=== PATIENT | male | born 1950 | race Caucasian/White ===

== ENCOUNTER 2016-11-29 09:04 | Outpatient (CLI) | payer OTHER ==
[2016-11-29] MEDS ORDERED: ALBUTEROL NEB 2.5 MG/3 ML INH ONE (10:08)
== END 2016-11-29 09:05 | disposition home or self-care (01) ==
DX: I27.2 Other secondary pulmonary hypertension (principal)
CPT/HCPCS: 94060; 94729; J7613

== ENCOUNTER 2016-12-18 13:37 | Outpatient (CLI) | payer OTHER | END 2016-12-18 13:38 | disposition home or self-care (01) | DX: R06.00 Dyspnea, unspecified (principal); I49.1 Atrial premature depolarization ==

== ENCOUNTER 2018-06-22 11:19 | Outpatient (CLI) | payer MEDICARE, OTHER | END 2018-06-22 11:20 | disposition home or self-care (01) | LOC: DI 11:19 | PROVIDERS: ATTEND Internal Medicine | DX: R93.1 Abnormal findings on diagnostic imaging of heart and coronary circulation (principal); I34.0 Nonrheumatic mitral (valve) insufficiency | CPT/HCPCS: 93306 ==

== ENCOUNTER 2019-04-22 | Outpatient (CLI) | payer MEDICARE, OTHER | END 2019-04-22 10:16 | disposition home or self-care (01) ==

== ENCOUNTER 2019-05-24 07:42 | Day surgery (SDC) | payer MEDICARE, OTHER ==
[2019-05-24] MEDS ORDERED: LACTATED RINGERS 1,000 ML IV ONE (08:17)
[2019-05-24] MEDS ORDERED: fentaNYL 250 MCG/5 ML VIAL IVP ONE (09:05)
[2019-05-24] MEDS ORDERED: MIDAZOLAM 2 MG/2 ML VIAL IVP ONE (09:05)
[2019-05-24 10:14] VITALS: BP 112/80
== END 2019-05-24 07:43 | disposition home or self-care (01) ==
LOC: SDS 07:42
PROVIDERS: ATTEND Internal Medicine Gastroenterology
PROC: 0DBN8ZZ Excision of Sigmoid Colon, Via Natural or Artificial Opening Endoscopic (ICD-10-PCS; 2019-05-24)
PROC: 0DBN8ZX Excision of Sigmoid Colon, Via Natural or Artificial Opening Endoscopic, Diagnostic (ICD-10-PCS; 2019-05-24)
PROC: 3E0H8GC Introduction of Other Therapeutic Substance into Lower GI, Via Natural or Artificial Opening Endoscopic (ICD-10-PCS; 2019-05-24)
PROC: 0DBP8ZZ Excision of Rectum, Via Natural or Artificial Opening Endoscopic (ICD-10-PCS; principal; 2019-05-24 09:15)
DX: Z12.11 Encounter for screening for malignant neoplasm of colon (principal); D17.79 Benign lipomatous neoplasm of other sites; K62.1 Rectal polyp; D12.5 Benign neoplasm of sigmoid colon; K57.30 Diverticulosis of large intestine without perforation or abscess without bleeding; E11.9 Type 2 diabetes mellitus without complications; I10 Essential (primary) hypertension; E66.9 Obesity, unspecified
CPT/HCPCS: 45380; 45381; 45385; J3010; J7120

== ENCOUNTER 2021-03-30 11:04 | Inpatient (IN) | payer MEDICARE, OTHER ==
--- NOTE | 2021-03-30 11:27 | ED Physician Documentation ---
PD HPI GI BLEED - Stated complaint Stated Complaint: MALE - Chief complaint Chief Complaint: General - History obtained from History obtained from: Patient - History of Present Illness Timing - onset: Last night Timing - duration: Hours (12) Timing - details: Abrupt onset Associated symptoms: Black/tarry stool, Dizzy (lightheaded with standing), Loss of appetite. No: Abdominal pain, Near syncope / syncope Contributing factors: NSAID use (takes naproxen daily). No: Sick contact, Bad food, Recent antibiotics, Anticoagulated Similar symptoms before: Has not had sx before Recently seen: Not recently seen Review of Systems Constitutional: denies: Fever, Chills Nose: denies: Rhinorrhea / runny nose, Congestion Throat: denies: Sore throat Cardiac: denies: Chest pain / pressure, Palpitations Respiratory: denies: Cough GI: reports: Nausea, Bloody / black stool. denies: Abdominal Pain, Vomiting, Constipation, Diarrhea : denies: Dysuria, Frequency Neurologic: reports: Generalized weakness. denies: Focal weakness, Altered ment al status, Headache PD PAST MEDICAL HISTORY - Past Medical History Cardiovascular: Hypertension, High cholesterol, Other Endocrine/Autoimmune: Type 2 diabetes GI: Colon polyps : Kidney stones HEENT: None Psych: None Musculoskeletal: None, Other Derm: None - Past Surgical History General: Colonoscopy HEENT: Tonsil/Adenoidectomy - Present Medications Home Medications: Ambulatory Orders Medication Instructions Recorded Confirmed Amlodipine Besylate [Norvasc] 10 mg PO DAILY 03/30/21 03/30/21 Atorvastatin [Lipitor] 20 mg PO QPM 03/30/21 03/30/21 Losartan Potassium [Cozaar] 100 mg PO DAILY 03/30/21 03/30/21 Tadalafil [Cialis] 5 mg PO DAILY 03/30/21 03/30/21 metFORMIN [Glucophage] 500 mg PO BIDWM 03/30/21 03/30/21 - Allergies Allergies/Adverse Reactions: Allergies Allergy/AdvReac Type Severity Reaction Status Date / Time Penicillins Allergy Unknown Verified 03/30/21 11:20 Sulfa (Sulfonamide Allergy Unknown Verified 03/30/21 11:20 Antibiotics) PD ED PE NORMAL - Vitals Vital signs reviewed: Yes - General General: Alert and oriented X 3, Well developed/nourished - Neck Neck: Supple, no meningeal sign, No adenopathy - Cardiac Cardiac: RRR (mild tachycardia), No murmur - Respiratory Respiratory: Clear bilaterally - Abdomen Abdomen: Normal bowel sounds, Soft, Non tender, Non distended, No organomegaly - Male Male : Deferred - Rectal Rectal: Deferred - Back Back: No CVA TTP - Derm Derm: Warm and dry. No: Normal color (pale) - Extremities Extremities: No tenderness to palpate, Normal ROM s pain, No edema, No calf tenderness / cord - Neuro Neuro: Alert and oriented X 3, No motor deficit, Normal speech Results - Vitals Vitals: Vital Signs - 24 hr 03/30/21 03/30/21 11:13 11:37 Temperature 36.6 C Heart Rate 102 H 109 H Respiratory 18 17 Rate Blood Pressure 125/72 125/71 O2 Saturation 98 100 Oxygen O2 Source Room air - Labs Labs: Laboratory Tests 03/30/21 03/30/21 03/30/21 11:29 11:29 11:29 WBC 9.1 RBC 2.43 L Hgb 7.7 L Hct 23.5 L MCV 96.7 H MCH 31.7 H MCHC 32.8 RDW 13.3 Plt Count 177 MPV 10.8 Neut # (Auto) 7.2 H Lymph # (Auto) 1.3 L [place] # (Auto) 0.6 Eos # (Auto) 0.0 Baso # (Auto) 0.0 Absolute Nucleated RBC 0.00 Nucleated RBC % 0.0 Sodium 137 Potassium 4.8 Chloride 102 Carbon Dioxide 24 Anion Gap 11.0 BUN 59 H Creatinine 1.0 Estimated GFR (MDRD) 74 L Glucose 149 H Calcium 9.5 Total Bilirubin 0.8 AST 19 ALT 29 Alkaline Phosphatase 48 Total Protein 6.7 Albumin 4.4 Globulin 2.3 Albumin/Globulin Ratio 1.9 Lipase 47 Urine Color Urine Clarity Urine pH Ur Specific [place] Urine Protein Urine Glucose (UA) Urine Ketones Urine Occult Blood Urine Nitrite Urine Bilirubin Urine Urobilinogen Ur Leukocyte Esterase Ur Microscopic Review Urine Culture Comments Nasal Adenovirus (PCR) Nasal B. parapertussis DNA (PCR) Nasal Coronavir 229E PCR Nasal Coronavir HKU1 PCR Nasal Coronavir NL63 PCR Nasal Coronavir OC43 PCR Nasal Enterovir/Rhinovir PCR Nasal Influenza B PCR Nasal Influenza A PCR Nasal Parainfluen 1 PCR Nasal Parainfluen 2 PCR Nasal Parainfluen 3 PCR Nasal Parainfluen 4 PCR Nasal RSV (PCR) Nasal B.pertussis DNA PCR Nasal C.pneumoniae (PCR) [place] Human Metapneumo PCR Nasal M.pneumoniae (PCR) Nasal SARS-CoV-2 (PCR) Blood Type B POSITIVE Blood Type Recheck Antibody Screen NEGATIVE Crossmatch IS Only See Detail 03/30/21 03/30/21 03/30/21 11:52 11:52 12:07 WBC RBC Hgb Hct MCV MCH MCHC RDW Plt Count MPV Neut # (Auto) Lymph # (Auto) [place] # (Auto) Eos # (Auto) Baso # (Auto) Absolute Nucleated RBC Nucleated RBC % Sodium Potassium Chloride Carbon Dioxide Anion Gap BUN Creatinine Estimated GFR (MDRD) Glucose Calcium Total Bilirubin AST ALT Alkaline Phosphatase Total Protein Albumin Globulin Albumin/Globulin Ratio Lipase Urine Color YELLOW Urine Clarity CLEAR Urine pH 5.0 Ur Specific [place] 1.015 Urine Protein NEGATIVE Urine Glucose (UA) NEGATIVE Urine Ketones NEGATIVE Urine Occult Blood NEGATIVE Urine Nitrite NEGATIVE Urine Bilirubin NEGATIVE Urine Urobilinogen 0.2 (NORMAL) Ur Leukocyte Esterase NEGATIVE Ur Microscopic Review NOT INDICATED Urine Culture Comments NOT INDICATED Nasal Adenovirus (PCR) NOT DETECTED Nasal B. parapertussis DNA (PCR) NOT DETECTED Nasal Coronavir 229E PCR NOT DETECTED Nasal Coronavir HKU1 PCR NOT DETECTED Nasal Coronavir NL63 PCR NOT DETECTED Nasal Coronavir OC43 PCR NOT DETECTED Nasal Enterovir/Rhinovir PCR NOT DETECTED Nasal Influenza B PCR NOT DETECTED Nasal Influenza A PCR NOT DETECTED Nasal Parainfluen 1 PCR NOT DETECTED Nasal Parainfluen 2 PCR NOT DETECTED Nasal Parainfluen 3 PCR NOT DETECTED Nasal Parainfluen 4 PCR NOT DETECTED Nasal RSV (PCR) NOT DETECTED Nasal B.pertussis DNA PCR NOT DETECTED Nasal C.pneumoniae (PCR) NOT DETECTED [place] Human Metapneumo PCR NOT DETECTED Nasal M.pneumoniae (PCR) NOT DETECTED Nasal SARS-CoV-2 (PCR) NOT DETECTED Blood Type Blood Type Recheck B POSITIVE Antibody Screen Crossmatch IS Only PD MEDICAL DECISION MAKING - ED course Complexity details: reviewed results (CBC low blood count and presume falling with ongoing bleeding. It is at 7.7 but giving unit blood appropriate. ), considered differential (presume upper GI bleeding. No anticoagulants. No history of liver disease. ), d/w patient, d/w [employer] consultant (Dr. Newby and Dr. Adkins) Departure - Departure Disposition: ED Place in Observation Clinical Impression: Upper GI bleed Anemia Qualifiers: Anemia type: unspecified type Qualified Code(s): D64.9 - Anemia, unspecified Condition: Stable Discharge Date/Time: 03/30/21 13:49
[2021-03-30] MEDS ORDERED: ONDANSETRON 4 MG/2 ML VIAL IVP STA (11:40)
[2021-03-30] MEDS ORDERED: FAMOTIDINE 20 MG/2 ML VIAL IVP STA (11:41)
[2021-03-30] MEDS ORDERED: SODIUM CHLORIDE 0.9% 1,000 ML IV STA (11:42)
[2021-03-30] MEDS ORDERED: PANTOPRAZOLE 40 MG VIAL IVP STA (11:43)
[2021-03-30 11:59] LABS: BASOPHILS % (AUTO) 0.1 %; EOSINOPHILS % (AUTO) 0.1 %; HCT - HEMATOCRIT 23.5 % (42.0-52.0); HGB - HEMOGLOBIN 7.7 g/dL (14.0-18.0); LYMPHOCYTES # (AUTO) 1.3 10^3/uL (1.5-3.5); LYMPHOCYTES % (AUTO) 13.9 %; MEAN CORPUSCULAR HEMOGLOBIN 31.7 pg (27.0-31.0); MEAN CORPUSCULAR HGB CONC 32.8 g/dL (32.0-36.0); MEAN CORPUSCULAR VOLUME 96.7 fL (80.0-94.0); MEAN PLATELET VOLUME 10.8 fL (7.4-11.4); MONOCYTES # (AUTO) 0.6 10^3/uL (0.0-1.0); MONOCYTES % (AUTO) 6.3 %; NEUTROPHILS # (AUTO) 7.2 10^3/uL (1.5-6.6); NEUTROPHILS % (AUTO) 78.7 %; PLT - PLATELET COUNT 177 10^3/uL (130-450); RED BLOOD COUNT 2.43 10^6/uL (4.70-6.10); RED CELL DISTRIBUTION WIDTH 13.3 % (12.0-15.0); WHITE BLOOD COUNT 9.1 x10^3/uL (4.8-10.8)
[2021-03-30 12:13] LABS: ALBUMIN 4.4 g/dL (3.2-5.5); ALBUMIN/GLOBULIN RATIO 1.9 (1.0-2.2); BILIRUBIN,TOTAL 0.8 mg/dL (0.2-1.0); CALCIUM 9.5 mg/dL (8.5-10.3); POTASSIUM 4.8 mmol/L (3.5-5.0); TOTAL PROTEIN 6.7 g/dL (6.7-8.2)
[2021-03-30 12:27] LABS: BILIRUBIN,URINE NEGATIVE (NEGATIVE); GLUCOSE, URINE (UA) NEGATIVE (NEGATIVE); KETONES,URINE (UA) NEGATIVE (NEGATIVE); LEUKOCYTE ESTERASE, URINE NEGATIVE (NEGATIVE); NITRITE,URINE NEGATIVE (NEGATIVE); OCCULT BLOOD,URINE NEGATIVE (NEGATIVE); PROTEIN,URINE NEGATIVE (NEGATIVE); UROBILINOGEN,URINE 0.2 (NORMAL) E.U./dL (NORMAL)
[2021-03-30 12:28] LABS: CLARITY,URINE CLEAR (CLEAR)
[2021-03-30 12:59] LABS: B. PARAPERTUSSIS- RESP PCR PAN NOT DETECTED; B. PERTUSSIS- RESP PCR PANEL NOT DETECTED; C. PNEUMONIAE- RESP PCR PANEL NOT DETECTED; CORONAVIRUS 229E-RESP PCR NOT DETECTED; CORONAVIRUS HKU1-RESP PCR NOT DETECTED; CORONAVIRUS NL63-RESP PCR NOT DETECTED; CORONAVIRUS OC43-RESP PCR NOT DETECTED; HUMAN METAPNEUMOVIRUS NOT DETECTED; INFLUENZA A- RESP PCR PANEL NOT DETECTED; INFLUENZA B - RESP PCR PANEL NOT DETECTED; M. PNEUMONIAE- RESP PCR PANEL NOT DETECTED; PARAINFLUENZA VIRUS 1 NOT DETECTED; PARAINFLUENZA VIRUS 2 NOT DETECTED; PARAINFLUENZA VIRUS 3 NOT DETECTED; PARAINFLUENZA VIRUS 4 NOT DETECTED; RHINOVIRUS/ENTEROVIRUS NOT DETECTED; RSV- RESP PCR PANEL NOT DETECTED; SARS-CoV-2 -RESP PCR PANEL NOT DETECTED
[2021-03-30] MEDS ORDERED: oxyCODONE 5 MG TABLET PO PRN (13:03)
[2021-03-30] MEDS ORDERED: MORPHINE 2 MG/ML CARPUJECT IVP PRN (13:03)
[2021-03-30] MEDS ORDERED: ACETAMINOPHEN 325 MG TABLET PO PRN (13:03)
[2021-03-30] MEDS ORDERED: ONDANSETRON 4 MG/2 ML VIAL IVP PRN (13:03)
--- NOTE | 2021-03-30 13:09 | HISTORY & PHYSICAL EXAMINATION ---
Chief Complaint - Chief Complaint Chief Complaint: Bloody stool History of Present Illness - Admitted From Admitted From:: Home - History Obtained From Records Reviewed: Yes History obtained from: Patient, ER Physician, EMR - History of Present Illness HPI Comment/Other: This is a 70-year-old male with a past medical history significant for type 2 d iabetes mellitus, hypertension presents today complaining of dark tarry stools. He states began yesterday evening at about 9 PM. He had 1 bowel movement noted to stool was bloody and dark. He thought himself that he likely was bleeding from an upper GI source. He states he went to sleep but woke up in all night another bowel movement and once again it was dark and tarry. He then began to feel quite dizzy and lightheaded and was barely able to get himself back to bed. Given he still felt weak, dizzy and lightheaded this morning, he decided to come to the emergency department. He reports he has been on ibuprofen for most of his life for chronic leg pain. Over the past 4 months he has switched to naproxen twice daily. He reports no nausea or vomiting or hematemesis. He does drink 4-5 alcoholic beverages a day and has been doing so since the age of 14. He reports having a colonoscopy his most recent being about 3 years ago. He has been told that he has diverticulosis, polyps and a lipoma in his colon. He currently reports feeling much better after receiving IV fluids in the emergency department. He denies any chest pain, dyspnea, fever, chills. Reports no abdominal pain. He denies use of any blood thinners including aspirin. In the emergency department, he was noted to have a hemoglobin of 7.7. Baseline is approximately 12. He was ordered 1 unit of packed red blood cell. Given the above findings, medicine was consulted for admission. He did receive Protonix I V in the emergency department and general surgery was contacted by the emergency department physician. We did discuss goals of care and he would like to be a full code. History - Past Medical History Cardiovascular: reports: Hypertension, High cholesterol, Other Endocrine/Autoimmune: reports: Type 2 diabetes GI: reports: Colon polyps : reports: Kidney stones HEENT: reports: None Psych: reports: None Musculoskeletal: reports: None, Other Derm: reports: None MRSA Hx?: No - Past Surgical History General: reports: Colonoscopy HEENT: reports: Tonsil/Adenoidectomy - Family & Social History Family History: Father: CAD, CVA/TIA Family History Comment/Other: He denies a family history of inflammatory bowel disease or cancer. He said his father from a stroke after CABG for heart disease. Living arrangement: At home Living Situation: With spouse/s.o. Social History Notes: He smoked a pack a day since the age of 14 and quit about 5 years ago. He has been drinking 4-5 alcoholic beverages on a regular basis since his teens. He lives at home with his . Meds/Allgy - Home Medications Home Medications: Ambulatory Orders Medication Instructions Recorded Confirmed Amlodipine Besylate [Norvasc] 10 mg PO DAILY 03/30/21 Atorvastatin [Lipitor] 20 mg PO QPM 03/30/21 Losartan Potassium [Cozaar] 100 mg PO DAILY 03/30/21 Tadalafil [Cialis] 5 mg PO DAILY 03/30/21 metFORMIN [Glucophage] 500 mg PO BIDWM 03/30/21 - Allergies Allergies/Adverse Reactions: Allergies Allergy/AdvReac Type Severity Reaction Status Date / Time Penicillins Allergy Unknown Verified 03/30/21 11:20 Sulfa (Sulfonamide Allergy Unknown Verified 03/30/21 11:20 Antibiotics) Review of Systems - Constitutional Constitutional: denies: Fever, Chills - Ears, Nose & Throat Ears, Nose & Throat: denies: Nasal discharge, Nasal congestion, Sore throat - Cardiovascular Cariovascular: reports: Lightheadedness. denies: Chest pain, Edema, Exertional dyspnea, Decr. exercise tolerance - Respiratory Respiratory: denies: Cough, SOB at rest, SOB with exertion - Gastrointestinal Gastrointestinal: reports: Black stools, Bloody stools. denies: Abdominal pain, Nausea, Vomiting, Donald blood emesis, Coffee grounds emesis, Poor appetite - Genitourinary Genitourinary: denies: Dysuria, Frequency, Urgency, Hematuria - Integumentary Integumentary: denies: Rash - Neurological Neurological: reports: General weakness, Dizziness. denies: Focal weakness, Headache - Hematologic/Lymphatic Hematologic/Lymphatic: denies: Anemia, Bleeding tendencies - All Other Systems All Other Systems: reports: Reviewed and negative Prior Level of Functionality: He is independent with his ADLs. Exam - Vital Signs Reviewed Vital Signs: Yes Vital Signs: Vital Signs x48h Temp Pulse Resp BP Pulse Ox 03/30/21 11:37 109 H 17 125/71 100 03/30/21 11:13 36.6 C 102 H 18 125/72 98 - Physical Exam General Appearance: positive: No acute distress, Alert Eyes Bilateral: positive: Normal inspection, Other (Conjuctival pallor.) ENT: positive: ENT inspection nml Neck: positive: Nml inspection Respiratory: positive: No respiratory distress. negative: Wheezes, Rales Cardiovascular: positive: Regular rate & rhythm, No murmur. negative: Tachycardia Abdomen: positive: Non-tender, No distention. negative: Tenderness Skin: positive: Warm, Dry, Pallor Extremities: positive: No pedal edema Neurologic/Psychiatric: positive: Motor nml. negative: Disoriented to person, Disoriented to place, Disoriented to time Conclusion/Plan - Problem List (1) Upper GI bleed Conclusion/Plan: Suspect this is the cause of his acute blood loss anemia. Given the elevated BUN and his NSAID use suspect this is likely an upper GI bleed. I did speak with general surgery who would like to perform an endoscopy and colonoscopy tomorrow. We will start the patient on Protonix 40 mg IV twice daily. Clear liquid diet for today and n.p.o. at midnight. We will also give him bowel prep for colonoscopy. (2) Acute blood loss anemia Conclusion/Plan: This is secondary to the upper GI bleed. Hemoglobin today 7.7 his baseline is around 12. He has been ordered 1 unit of packed red blood cell in the emergency department and we will monitor his hemoglobin every 8 hours. We will continue to transfuse as needed. SCDs for DVT prophylaxis. (3) Type 2 diabetes mellitus Conclusion/Plan: Metformin and a statin at home. We will place him on sliding scale and once he is taking p.o. consistently we will place him on a carb controlled diet. - Lab Results Fish Bones: 03/30/21 14:43 03/30/21 11:29 Core Measures - Anticipated LOS I expect patient to be DC'd or transferred within 96 hours.: Yes - Issues Hospital Issues and Management Plan: 70-year-old male found to have acute both anemia and likely upper GI bleed. We will place in observation for endoscopy and transfusion of packed red blood cell. - DVT/VTE - Prophylaxis VTE/DVT Device ordered at admit?: Yes VTE/DVT Prophylaxis med ordered at admit?: No Not Ordered - Medical Reason: Contraindicated
[2021-03-30] MEDS: SODIUM CHLORIDE FLUSH 0.9% 10 ML SYRINGE IVP PRN (14:24)
[2021-03-30 14:54] LABS: HCT - HEMATOCRIT 21.7 % (42.0-52.0)
--- NOTE | 2021-03-30 16:16 | PHARMACY PROGRESS NOTE ---
- Best Possible Medication History Admit Date and Time: 03/30/21 1302 Processed by: Pharmacy Medication History completed: Yes Patient Interview: Completed Secondary Source(s): Pharmacy records, Insurance records As the person ultimately responsible for medication therapy, providers are able to order a medication from an existing home medication list in [facility] via the "Reconcile Routine" prior to Confirmation of that medication by security support analyst. Such practice is discouraged except when the physician, in their clinical judgment, deems that a medical need exists for a medication without regard to previous use.
[2021-03-30] MEDS: INSULIN ASPART 300 UNIT/3 ML PEN SUBQ SCH ×2 (17:15→21:08)
[2021-03-30] MEDS: SODIUM CHLORIDE FLUSH 0.9% 10 ML SYRINGE IVP SCH (17:15)
[2021-03-30] MEDS: SODIUM/POTASSIUM/MAG SULFATES 354 ML PREP KIT PO SCH (17:53)
[2021-03-30 18:37] LABS: INR 1.2 (0.8-1.2); PT - PROTHROMBIN TIME 13.2 secs (9.9-12.6)
[2021-03-30] MEDS: PANTOPRAZOLE 40 MG VIAL IVP SCH (20:56)
[2021-03-30 21:58] LABS: HCT - HEMATOCRIT 23.8 % (42.0-52.0); HGB - HEMOGLOBIN 7.8 g/dL (14.0-18.0)
[2021-03-31] MEDS: SODIUM CHLORIDE FLUSH 0.9% 10 ML SYRINGE IVP SCH ×3 (00:58→16:54)
[2021-03-31] MEDS: SODIUM/POTASSIUM/MAG SULFATES 354 ML PREP KIT PO SCH (05:21)
[2021-03-31] MEDS: INSULIN REGULAR HUMAN 300 UNIT/3 ML VIAL SUBQ SCH ×2 (06:20→11:57)
[2021-03-31 08:08] LABS: BASOPHILS % (AUTO) 0.2 %; EOSINOPHILS # (AUTO) 0.2 10^3/uL (0.0-0.7); EOSINOPHILS % (AUTO) 2.8 %; HCT - HEMATOCRIT 24.2 % (42.0-52.0); HGB - HEMOGLOBIN 7.8 g/dL (14.0-18.0); LYMPHOCYTES # (AUTO) 1.5 10^3/uL (1.5-3.5); MEAN CORPUSCULAR HEMOGLOBIN 29.8 pg (27.0-31.0); MEAN CORPUSCULAR HGB CONC 32.2 g/dL (32.0-36.0); MEAN CORPUSCULAR VOLUME 92.4 fL (80.0-94.0); MEAN PLATELET VOLUME 10.6 fL (7.4-11.4); MONOCYTES # (AUTO) 0.5 10^3/uL (0.0-1.0); MONOCYTES % (AUTO) 8.4 %; NEUTROPHILS # (AUTO) 3.6 10^3/uL (1.5-6.6); NEUTROPHILS % (AUTO) 62.2 %; PLT - PLATELET COUNT 151 10^3/uL (130-450); RED BLOOD COUNT 2.62 10^6/uL (4.70-6.10); RED CELL DISTRIBUTION WIDTH 15.1 % (12.0-15.0); WHITE BLOOD COUNT 5.7 x10^3/uL (4.8-10.8)
[2021-03-31 08:33] LABS: CALCIUM 9.1 mg/dL (8.5-10.3); CREATININE 1.1 mg/dL (0.6-1.2); PHOSPHORUS 3.8 mg/dL (2.5-4.6); POTASSIUM 4.3 mmol/L (3.5-5.0)
[2021-03-31] MEDS: PANTOPRAZOLE 40 MG VIAL IVP SCH ×2 (09:23→22:32)
--- NOTE | 2021-03-31 12:39 | PROVIDER PROGRESS NOTE ---
Subjective - Prog Note Date Prog Note Date: 03/31/21 - Subjective Subjective: He reports doing well today. Has not noticed much more bleeding. Most of his bowel movements since starting the prep have been liquid and now predominantly clear. Denies any abdominal pain. Current Medications - Current Medications Current Medications: Active Medications Acetaminophen (Acetaminophen 325 Mg Tablet) 650 mg PO Q4HR PRN PRN Reason: Pain 1 to 4 Insulin Human Regular (Insulin Regular Human 300 Unit/3 Ml Vial) 1 - 5 unit SUBQ Q6HR [facility]; Protocol Last Admin: 03/31/21 11:57 Dose: Not Given Documented by: Morphine Sulfate (Morphine 2 Mg/Ml Carpuject) 2 mg IVP Q2HR PRN PRN Reason: Pain 8 to 10 Ondansetron HCl (Ondansetron 4 Mg/2 Ml Vial) 4 mg IVP Q6HR PRN PRN Reason: Nausea / Vomiting Oxycodone HCl (Oxycodone 5 Mg Tablet) 5 mg PO Q4HR PRN PRN Reason: Pain 5 to 7 Pantoprazole Sodium (Pantoprazole 40 Mg Vial) 40 mg IVP BID [facility] Last Admin: 03/31/21 09:23 Dose: 40 mg Documented by: Sodium Chloride (Sodium Chloride Flush 0.9% 10 Ml Syringe) 10 ml IVP PRN PRN PRN Reason: NEEDED PER PROVIDER ORDERS Last Admin: 03/30/21 14:24 Dose: 10 ml Documented by: Sodium Chloride (Sodium Chloride Flush 0.9% 10 Ml Syringe) 10 ml IVP 0100,0900,1700 [facility] Last Admin: 03/31/21 09:23 Dose: 10 ml Documented by: Amlodipine Besylate [Norvasc] 10 mg PO DAILY 03/30/21 Atorvastatin [Lipitor] 20 mg PO QPM 03/30/21 Losartan Potassium [Cozaar] 100 mg PO DAILY 03/30/21 Tadalafil [Cialis] 5 mg PO DAILY 03/30/21 metFORMIN [Glucophage] 500 mg PO BIDWM 03/30/21 Objective - Vital Signs/Intake & Output Reviewed Vital Signs: Yes Vital Signs: Vital Signs x48h Temp Pulse Resp BP Pulse Ox 03/31/21 12:09 37.0 C 74 18 134/68 H 100 03/31/21 08:45 36.8 C 77 18 127/70 100 03/31/21 06:16 127/68 03/31/21 05:00 36.8 C 80 16 94/57 L 98 Intake & Output: Intake & Output 03/28/21 03/29/21 03/30/21 03/31/21 23:59 23:59 23:59 23:59 Intake Total 3970 1000 Balance 3970 1000 - Objective General Appearance: positive: No acute distress, Alert Eyes Bilateral: positive: Normal inspection ENT: positive: ENT inspection nml Neck: positive: Nml inspection Respiratory: positive: No respiratory distress. negative: Wheezes, Rales Cardiovascular: positive: Regular rate & rhythm, No murmur Abdomen: positive: Non-tender, No distention. negative: Tenderness Skin: positive: Warm, Dry Extremities: positive: No pedal edema Neurologic/Psychiatric: positive: Oriented x3 - Lab Results Fish Bones: 03/31/21 07:18 03/31/21 07:18 Other Labs: Lab Results x24hrs 03/31/21 03/31/21 03/31/21 Range/Units 11:13 07:18 07:18 WBC 5.7 (4.8-10.8) x10^3/uL RBC 2.62 L (4.70-6.10) 10^6/uL Hgb 7.8 L (14.0-18.0) g/dL Hct 24.2 L (42.0-52.0) % MCV 92.4 (80.0-94.0) fL MCH 29.8 (27.0-31.0) pg MCHC 32.2 (32.0-36.0) g/dL RDW 15.1 H (12.0-15.0) % Plt Count 151 (130-450) 10^3/uL MPV 10.6 (7.4-11.4) fL Neut # (Auto) 3.6 (1.5-6.6) 10^3/uL Lymph # (Auto) 1.5 (1.5-3.5) 10^3/uL [place] # (Auto) 0.5 (0.0-1.0) 10^3/uL Eos # (Auto) 0.2 (0.0-0.7) 10^3/uL Baso # (Auto) 0.0 (0.0-0.1) 10^3/uL Absolute Nucleated RBC 0.00 x10^3/uL Nucleated RBC % 0.0 /100WBC PT (9.9-12.6) secs INR (0.8-1.2) Sodium 137 (135-145) mmol/L Potassium 4.3 (3.5-5.0) mmol/L Chloride 101 (101-111) mmol/L Carbon Dioxide 26 (21-32) mmol/L Anion Gap 10.0 (6-13) BUN 37 H (6-20) mg/dL Creatinine 1.1 (0.6-1.2) mg/dL Estimated GFR (MDRD) 67 L (>89) Glucose 122 H (70-100) mg/dL POC Whole Bld Glucose 109 H (70 - 100) mg/dL Calcium 9.1 (8.5-10.3) mg/dL Phosphorus 3.8 (2.5-4.6) mg/dL Magnesium 2.0 (1.7-2.8) mg/dL Nasal Adenovirus (PCR) Nasal B. parapertussis DNA (PCR) Nasal Coronavir 229E PCR Nasal Coronavir HKU1 PCR Nasal Coronavir NL63 PCR Nasal Coronavir OC43 PCR Nasal Enterovir/Rhinovir PCR Nasal Influenza B PCR Nasal Influenza A PCR Nasal Parainfluen 1 PCR Nasal Parainfluen 2 PCR Nasal Parainfluen 3 PCR Nasal Parainfluen 4 PCR Nasal RSV (PCR) Nasal B.pertussis DNA PCR Nasal C.pneumoniae (PCR) [place] Human Metapneumo PCR Nasal M.pneumoniae (PCR) Nasal SARS-CoV-2 (PCR) Blood Type Blood Type Recheck Antibody Screen Crossmatch IS Only 03/31/21 03/30/21 03/30/21 Range/Units 06:20 21:55 20:57 WBC (4.8-10.8) x10^3/uL RBC (4.70-6.10) 10^6/uL Hgb 7.8 L (14.0-18.0) g/dL Hct 23.8 L (42.0-52.0) % MCV (80.0-94.0) fL MCH (27.0-31.0) pg MCHC (32.0-36.0) g/dL RDW (12.0-15.0) % Plt Count (130-450) 10^3/uL MPV (7.4-11.4) fL Neut # (Auto) (1.5-6.6) 10^3/uL Lymph # (Auto) (1.5-3.5) 10^3/uL [place] # (Auto) (0.0-1.0) 10^3/uL Eos # (Auto) (0.0-0.7) 10^3/uL Baso # (Auto) (0.0-0.1) 10^3/uL Absolute Nucleated RBC x10^3/uL Nucleated RBC % /100WBC PT (9.9-12.6) secs INR (0.8-1.2) Sodium (135-145) mmol/L Potassium (3.5-5.0) mmol/L Chloride (101-111) mmol/L Carbon Dioxide (21-32) mmol/L Anion Gap (6-13) BUN (6-20) mg/dL Creatinine (0.6-1.2) mg/dL Estimated GFR (MDRD) (>89) Glucose (70-100) mg/dL POC Whole Bld Glucose 108 H 100 (70 - 100) mg/dL Calcium (8.5-10.3) mg/dL Phosphorus (2.5-4.6) mg/dL Magnesium (1.7-2.8) mg/dL Nasal Adenovirus (PCR) Nasal B. parapertussis DNA (PCR) Nasal Coronavir 229E PCR Nasal Coronavir HKU1 PCR Nasal Coronavir NL63 PCR Nasal Coronavir OC43 PCR Nasal Enterovir/Rhinovir PCR Nasal Influenza B PCR Nasal Influenza A PCR Nasal Parainfluen 1 PCR Nasal Parainfluen 2 PCR Nasal Parainfluen 3 PCR Nasal Parainfluen 4 PCR Nasal RSV (PCR) Nasal B.pertussis DNA PCR Nasal C.pneumoniae (PCR) [place] Human Metapneumo PCR Nasal M.pneumoniae (PCR) Nasal SARS-CoV-2 (PCR) Blood Type Blood Type Recheck Antibody Screen Crossmatch IS Only 03/30/21 03/30/21 03/30/21 Range/Units 18:29 16:55 14:43 WBC (4.8-10.8) x10^3/uL RBC (4.70-6.10) 10^6/uL Hgb 7.0 L* (14.0-18.0) g/dL Hct 21.7 L (42.0-52.0) % MCV (80.0-94.0) fL MCH (27.0-31.0) pg MCHC (32.0-36.0) g/dL RDW (12.0-15.0) % Plt Count (130-450) 10^3/uL MPV (7.4-11.4) fL Neut # (Auto) (1.5-6.6) 10^3/uL Lymph # (Auto) (1.5-3.5) 10^3/uL [place] # (Auto) (0.0-1.0) 10^3/uL Eos # (Auto) (0.0-0.7) 10^3/uL Baso # (Auto) (0.0-0.1) 10^3/uL Absolute Nucleated RBC x10^3/uL Nucleated RBC % /100WBC PT 13.2 H (9.9-12.6) secs INR 1.2 (0.8-1.2) Sodium (135-145) mmol/L Potassium (3.5-5.0) mmol/L Chloride (101-111) mmol/L Carbon Dioxide (21-32) mmol/L Anion Gap (6-13) BUN (6-20) mg/dL Creatinine (0.6-1.2) mg/dL Estimated GFR (MDRD) (>89) Glucose (70-100) mg/dL POC Whole Bld Glucose 128 H (70 - 100) mg/dL Calcium (8.5-10.3) mg/dL Phosphorus (2.5-4.6) mg/dL Magnesium (1.7-2.8) mg/dL Nasal Adenovirus (PCR) Nasal B. parapertussis DNA (PCR) Nasal Coronavir 229E PCR Nasal Coronavir HKU1 PCR Nasal Coronavir NL63 PCR Nasal Coronavir OC43 PCR Nasal Enterovir/Rhinovir PCR Nasal Influenza B PCR Nasal Influenza A PCR Nasal Parainfluen 1 PCR Nasal Parainfluen 2 PCR Nasal Parainfluen 3 PCR Nasal Parainfluen 4 PCR Nasal RSV (PCR) Nasal B.pertussis DNA PCR Nasal C.pneumoniae (PCR) [place] Human Metapneumo PCR Nasal M.pneumoniae (PCR) Nasal SARS-CoV-2 (PCR) Blood Type Blood Type Recheck Antibody Screen Crossmatch IS Only 03/30/21 03/30/21 03/30/21 Range/Units 12:07 11:52 11:29 WBC (4.8-10.8) x10^3/uL RBC (4.70-6.10) 10^6/uL Hgb (14.0-18.0) g/dL Hct (42.0-52.0) % MCV (80.0-94.0) fL MCH (27.0-31.0) pg MCHC (32.0-36.0) g/dL RDW (12.0-15.0) % Plt Count (130-450) 10^3/uL MPV (7.4-11.4) fL Neut # (Auto) (1.5-6.6) 10^3/uL Lymph # (Auto) (1.5-3.5) 10^3/uL [place] # (Auto) (0.0-1.0) 10^3/uL Eos # (Auto) (0.0-0.7) 10^3/uL Baso # (Auto) (0.0-0.1) 10^3/uL Absolute Nucleated RBC x10^3/uL Nucleated RBC % /100WBC PT (9.9-12.6) secs INR (0.8-1.2) Sodium (135-145) mmol/L Potassium (3.5-5.0) mmol/L Chloride (101-111) mmol/L Carbon Dioxide (21-32) mmol/L Anion Gap (6-13) BUN (6-20) mg/dL Creatinine (0.6-1.2) mg/dL Estimated GFR (MDRD) (>89) Glucose (70-100) mg/dL POC Whole Bld Glucose (70 - 100) mg/dL Calcium (8.5-10.3) mg/dL Phosphorus (2.5-4.6) mg/dL Magnesium (1.7-2.8) mg/dL Nasal Adenovirus (PCR) NOT DETECTED Nasal B. parapertussis DNA (PCR) NOT DETECTED Nasal Coronavir 229E PCR NOT DETECTED Nasal Coronavir HKU1 PCR NOT DETECTED Nasal Coronavir NL63 PCR NOT DETECTED Nasal Coronavir OC43 PCR NOT DETECTED Nasal Enterovir/Rhinovir PCR NOT DETECTED Nasal Influenza B PCR NOT DETECTED Nasal Influenza A PCR NOT DETECTED Nasal Parainfluen 1 PCR NOT DETECTED Nasal Parainfluen 2 PCR NOT DETECTED Nasal Parainfluen 3 PCR NOT DETECTED Nasal Parainfluen 4 PCR NOT DETECTED Nasal RSV (PCR) NOT DETECTED Nasal B.pertussis DNA PCR NOT DETECTED Nasal C.pneumoniae (PCR) NOT DETECTED [place] Human Metapneumo PCR NOT DETECTED Nasal M.pneumoniae (PCR) NOT DETECTED Nasal SARS-CoV-2 (PCR) NOT DETECTED Blood Type B POSITIVE Blood Type Recheck B POSITIVE Antibody Screen NEGATIVE Crossmatch IS Only See Detail Assessment/Plan - Problem List (1) Upper GI bleed Impression: This is the suspected cause of his acute blood loss anemia and likely related to his NSAID use. He does report alcohol use on regular basis but low suspicion for varices at this time. The plan will be for endoscopy and colonoscopy today. We will continue him on Protonix milligrams IV twice daily. We have discussed the importance of limiting his alcohol use and NSAID use. Depending on the EGD and colonoscopy findings as well as if his hemoglobin is stable, we will plan for discharge either later this afternoon or tomorrow. Continue n.p.o. status for the time being until the scopes and then will place him on a diet. (2) Acute blood loss anemia Impression: This is secondary to the likely upper GI bleed. He received 1 unit of packed r ed blood cell and his hemoglobin is stable this morning compared to yesterday evening. We will recheck another hemoglobin after the EGD and colonoscopy. Depending on the results of his scopes and if hemoglobin is stable, will consider discharge this afternoon or tomorrow morning. Continue to check hemoglobin every 8 hours. (3) Type 2 diabetes mellitus Impression: Stable. Once he is n.p.o. we will start him on carb controlled diet and sliding scale.
[2021-03-31 15:02] LABS: HGB - HEMOGLOBIN 7.6 g/dL (14.0-18.0)
[2021-03-31] MEDS: INSULIN ASPART 300 UNIT/3 ML PEN SUBQ SCH ×2 (16:54→21:27)
[2021-03-31] MEDS ORDERED: MAGNESIUM CITRATE 296 ML BOTTLE PO PRN (21:58)
[2021-03-31] MEDS ORDERED: MAGNESIUM CITRATE 296 ML BOTTLE PO STA (22:00)
[2021-03-31] MEDS: SODIUM CHLORIDE FLUSH 0.9% 10 ML SYRINGE IVP PRN (22:32)
[2021-04-01] MEDS: INSULIN REGULAR HUMAN 300 UNIT/3 ML VIAL SUBQ SCH ×3 (01:00→11:44)
[2021-04-01] MEDS: SODIUM CHLORIDE FLUSH 0.9% 10 ML SYRINGE IVP SCH ×4 (01:30→23:57)
[2021-04-01] MEDS ORDERED: PETROLATUM WHITE 5 GM PACKET TOP PRN (05:46)
[2021-04-01] MEDS ORDERED: MIN OIL/DIMETHICON/COCONUT OIL 92 GM TUBE TOP PRN (05:46)
[2021-04-01 05:59] LABS: BASOPHILS % (AUTO) 0.2 %; EOSINOPHILS # (AUTO) 0.2 10^3/uL (0.0-0.7); EOSINOPHILS % (AUTO) 3.6 %; HCT - HEMATOCRIT 20.2 % (42.0-52.0); LYMPHOCYTES # (AUTO) 1.2 10^3/uL (1.5-3.5); LYMPHOCYTES % (AUTO) 24.1 %; MEAN CORPUSCULAR HEMOGLOBIN 30.3 pg (27.0-31.0); MEAN CORPUSCULAR HGB CONC 33.2 g/dL (32.0-36.0); MEAN CORPUSCULAR VOLUME 91.4 fL (80.0-94.0); MEAN PLATELET VOLUME 10.6 fL (7.4-11.4); MONOCYTES # (AUTO) 0.5 10^3/uL (0.0-1.0); MONOCYTES % (AUTO) 9.7 %; NEUTROPHILS # (AUTO) 3.1 10^3/uL (1.5-6.6); PLT - PLATELET COUNT 132 10^3/uL (130-450); RED BLOOD COUNT 2.21 10^6/uL (4.70-6.10); RED CELL DISTRIBUTION WIDTH 14.6 % (12.0-15.0); WHITE BLOOD COUNT 5.1 x10^3/uL (4.8-10.8)
[2021-04-01 06:01] LABS: HGB - HEMOGLOBIN 6.7 g/dL (14.0-18.0)
[2021-04-01 06:08] LABS: CALCIUM 8.4 mg/dL (8.5-10.3); CREATININE 0.9 mg/dL (0.6-1.2); POTASSIUM 3.6 mmol/L (3.5-5.0)
[2021-04-01] MEDS ORDERED: LIDOCAINE-MPF 2% 5 ML VIAL ONE ×2 (07:05→09:27)
[2021-04-01] MEDS ORDERED: PROPOFOL 1000 MG/100 ML 1,000 MG/100 ML BOTTLE IV ONE (07:05)
--- NOTE | 2021-04-01 07:28 | ANESTHESIA ---
Pre-Anesthesia VS, & Labs - Diagnosis GI bleed - Procedure EGD, Colonoscopy Vital Signs: Temp Pulse Resp BP Pulse Ox 36.5 C 75 17 119/58 L 100 04/01/21 05:42 04/01/21 05:42 04/01/21 05:42 04/01/21 05:42 04/01/21 05:42 Height: 5 ft 9 in Weight (kg): 89.811 kg Body Mass Index: 29.2 BMI Classification: Overweight - NPO >8 hours - Lab Results Current Lab Results: Laboratory Tests 04/01/21 05:57: POC Whole Bld Glucose 126 H 04/01/21 05:23: Sodium 137, Potassium 3.6, Chloride 104, Carbon Dioxide 27, Anion Gap 6.0, BUN 22 H, Creatinine 0.9, Estimated GFR (MDRD) 84 L, Glucose 126 H, Calcium 8.4 L, Phosphorus 4.0, Magnesium 3.0 H 04/01/21 05:23: WBC 5.1, RBC 2.21 L, Hgb 6.7 L*, Hct 20.2 L, MCV 91.4, MCH 30.3, MCHC 33.2, RDW 14.6, Plt Count 132, MPV 10.6, Neut # (Auto) 3.1, Lymph # (Auto) 1.2 L, [place] # (Auto) 0.5, Eos # (Auto) 0.2, Baso # (Auto) 0.0, Absolute Nucleated RBC 0.00, Nucleated RBC % 0.0 04/01/21 00:04: POC Whole Bld Glucose 114 H 03/31/21 20:30: POC Whole Bld Glucose 108 H 03/31/21 16:46: POC Whole Bld Glucose 249 H 03/31/21 14:34: Hgb 7.6 L, Hct 23.0 L 03/31/21 11:13: POC Whole Bld Glucose 109 H 03/31/21 07:18: Sodium 137, Potassium 4.3, Chloride 101, Carbon Dioxide 26, Anion Gap 10.0, BUN 37 H, Creatinine 1.1, Estimated GFR (MDRD) 67 L, Glucose 122 H, Calcium 9.1, Phosphorus 3.8, Magnesium 2.0 03/31/21 07:18: WBC 5.7, RBC 2.62 L, Hgb 7.8 L, Hct 24.2 L, MCV 92.4, MCH 29.8, MCHC 32.2, RDW 15.1 H, Plt Count 151, MPV 10.6, Neut # (Auto) 3.6, Lymph # (Auto) 1.5, [place] # (Auto) 0.5, Eos # (Auto) 0.2, Baso # (Auto) 0.0, Absolute Nucleated RBC 0.00, Nucleated RBC % 0.0 03/31/21 06:20: POC Whole Bld Glucose 108 H 03/30/21 21:55: Hgb 7.8 L, Hct 23.8 L 03/30/21 20:57: POC Whole Bld Glucose 100 03/30/21 18:29: PT 13.2 H, INR 1.2 03/30/21 16:55: POC Whole Bld Glucose 128 H 03/30/21 14:43: Hgb 7.0 L*, Hct 21.7 L 03/30/21 12:07: Blood Type Recheck B POSITIVE 03/30/21 11:29: Sodium 137, Potassium 4.8, Chloride 102, Carbon Dioxide 24, Anion Gap 11.0, BUN 59 H, Creatinine 1.0, Estimated GFR (MDRD) 74 L, Glucose 149 H, Calcium 9.5, Total Bilirubin 0.8, AST 19, ALT 29, Alkaline Phosphatase 48, Total Protein 6.7, Albumin 4.4, Globulin 2.3, Albumin/Globulin Ratio 1.9, Lipase 47 03/30/21 11:29: WBC 9.1, RBC 2.43 L, Hgb 7.7 L, Hct 23.5 L, MCV 96.7 H, MCH 31.7 H, MCHC 32.8, RDW 13.3, Plt Count 177, MPV 10.8, Neut # (Auto) 7.2 H, Lymph # (Auto) 1.3 L, [place] # (Auto) 0.6, Eos # (Auto) 0.0, Baso # (Auto) 0.0, Absolute Nucleated RBC 0.00, Nucleated RBC % 0.0 03/30/21 11:29: Blood Type B POSITIVE, Antibody Screen NEGATIVE, Crossmatch IS Only See Detail Fish Bones: 04/01/21 05:23 04/01/21 05:23 Home Medications and Allergies Home Medications: Ambulatory Orders Amlodipine Besylate [Norvasc] 10 mg PO DAILY 03/30/21 Atorvastatin [Lipitor] 20 mg PO QPM 03/30/21 Losartan Potassium [Cozaar] 100 mg PO DAILY 03/30/21 Tadalafil [Cialis] 5 mg PO DAILY 03/30/21 metFORMIN [Glucophage] 500 mg PO BIDWM 03/30/21 Active Medications Acetaminophen (Acetaminophen 325 Mg Tablet) 650 mg PO Q4HR PRN PRN Reason: Pain 1 to 4 Insulin Human Regular (Insulin Regular Human 300 Unit/3 Ml Vial) 1 - 5 unit SUBQ Q6HR [facility]; Protocol Last Admin: 04/01/21 05:59 Dose: Not Given Documented by: Mineral Oil (Min Oil/Dimethicon/Coconut Oil 92 Gm Tube) 1 applic TOP PRN PRN PRN Reason: Skin Care Last Admin: 04/01/21 06:26 Dose: 1 applic Documented by: Morphine Sulfate (Morphine 2 Mg/Ml Carpuject) 2 mg IVP Q2HR PRN PRN Reason: Pain 8 to 10 Ondansetron HCl (Ondansetron 4 Mg/2 Ml Vial) 4 mg IVP Q6HR PRN PRN Reason: Nausea / Vomiting Oxycodone HCl (Oxycodone 5 Mg Tablet) 5 mg PO Q4HR PRN PRN Reason: Pain 5 to 7 Pantoprazole Sodium (Pantoprazole 40 Mg Vial) 40 mg IVP BID [facility] Last Admin: 03/31/21 22:32 Dose: 40 mg Documented by: Petrolatum (Petrolatum White 5 Gm Packet) 1 applic TOP PRN PRN PRN Reason: Dry Lips Sodium Chloride (Sodium Chloride Flush 0.9% 10 Ml Syringe) 10 ml IVP PRN PRN PRN Reason: NEEDED PER PROVIDER ORDERS Last Admin: 03/31/21 22:32 Dose: 10 ml Documented by: Sodium Chloride (Sodium Chloride Flush 0.9% 10 Ml Syringe) 10 ml IVP 0100,0900,1700 [facility] Last Admin: 04/01/21 01:30 Dose: 10 ml Documented by: Amlodipine Besylate [Norvasc] 10 mg PO DAILY 03/30/21 Atorvastatin [Lipitor] 20 mg PO QPM 03/30/21 Losartan Potassium [Cozaar] 100 mg PO DAILY 03/30/21 Tadalafil [Cialis] 5 mg PO DAILY 03/30/21 metFORMIN [Glucophage] 500 mg PO BIDWM 03/30/21 Allergies/Adverse Reactions: Allergies Allergy/AdvReac Type Severity Reaction Status Date / Time Penicillins Allergy Unknown Verified 03/30/21 11:20 Sulfa (Sulfonamide Allergy Unknown Verified 03/30/21 11:20 Antibiotics) Anes History & Medical History - Anesthetic History Anesthesia Complications: reports: No previous complications Family history of Anesthesia Complications: Denies Family history of Malignant Hyperthermia: Denies - Medical History Cardiovascular: reports: Hypertension, High cholesterol, Other Pulmonary: reports: Sleep apnea (per past anesthesia provider, never had sleep study) Gastrointestinal: reports: Colon polyps Urinary: reports: Kidney stones Musculoskeletal: reports: None, Other Endocrine/Autoimmune: reports: Type 2 diabetes Skin: reports: None Smoking Status: Former smoker - Surgical History General: reports: Colonoscopy Eyes Ears Nose Throat (EENT): reports: Tonsil/Adenoidectomy Exam General: Alert, Oriented x3, Cooperative, No acute distress Dental: WNL Mouth Openin Fingerbreadth Neck Mobility: Normal Mallampati classification: II Respiratory: Lungs clear, Normal breath sounds, No respiratory distress, No accessory muscle use Cardiovascular: Regular rate, Normal S1, Normal S2, No murmurs Plan Anesthesia Type: General, Total IV Consent for Procedure(s) Verified and Reviewed: Yes Code Status: Attempt Resuscitation ASA classification: 2-Mild systemic disease Is this case an emergency?: No
--- NOTE | 2021-04-01 08:16 | CONSULTATION NOTE ---
Referring Provider Name of Referring Provider:: Dr. Guru Dobbins Consult Date: 03/31/21 Chief Complaint - Chief Complaint Chief Complaint: Hematochezia and symptomatic anemia History of Present Illness - Admitted From Admitted From:: Home - History Obtained From Records Reviewed: EMR History obtained from: Patient Exam Limitations: NONE - History of Present Illness HPI Comment/Other: 70-year-old male presenting for symptomatic anemia and hematochezia. Patient with history of regular colonoscopies. Presents with melena and associated lethargy. Daily nonsteroidal use with no proton pump inhibition. Progressive worsening symptoms. No significant family history. Notable past surgical history to include none. Patient denies change in bowel function, positive bleeding per rectum, and also occasional reflux associated symptoms. Patient does not use tobacco. Patient has a history of alcohol use but denies any associated abuse. Worsening exercise tolerance. No history of heart attack or stroke. Patient takes no systemic anticoagulation. Endoscopic history includes approximately 3 years prior. History - Past Medical History Cardiovascular: reports: Hypertension, High cholesterol, Other Respiratory: reports: Sleep apnea (per past anesthesia provider, never had sleep study) Endocrine/Autoimmune: reports: Type 2 diabetes GI: reports: Colon polyps : reports: Kidney stones HEENT: reports: None Psych: reports: None Musculoskeletal: reports: None, Other Derm: reports: None MRSA Hx?: No - Past Surgical History General: reports: Colonoscopy HEENT: reports: Tonsil/Adenoidectomy - Family & Social History Family History: Father: CAD, CVA/TIA Family History Comment/Other: He denies a family history of inflammatory bowel disease or cancer. He said his father from a stroke after CABG for heart disease. Living arrangement: At home Living Situation: With spouse/s.o. Social History Notes: He smoked a pack a day since the age of 14 and quit about 5 years ago. He has been drinking 4-5 alcoholic beverages on a regular basis since his teens. He lives at home with his . Meds/Allgy - Home Medications Home Medications: Ambulatory Orders Medication Instructions Recorded Confirmed Amlodipine Besylate [Norvasc] 10 mg PO DAILY 03/30/21 03/30/21 Atorvastatin [Lipitor] 20 mg PO QPM 03/30/21 03/30/21 Losartan Potassium [Cozaar] 100 mg PO DAILY 03/30/21 03/30/21 Tadalafil [Cialis] 5 mg PO DAILY 03/30/21 03/30/21 metFORMIN [Glucophage] 500 mg PO BIDWM 03/30/21 03/30/21 - Allergies Allergies/Adverse Reactions: Allergies Allergy/AdvReac Type Severity Reaction Status Date / Time Penicillins Allergy Unknown Verified 03/30/21 11:20 Sulfa (Sulfonamide Allergy Unknown Verified 03/30/21 11:20 Antibiotics) Review of Systems - Constitutional Constitutional: reports: Fatigue - Gastrointestinal Gastrointestinal: reports: Black stools, Bloody stools Exam - Vital Signs Vital Signs: Vital Signs x48h Temp Pulse Pulse Pulse Resp BP BP 04/01/21 08:07 37.1 C 72 17 117/57 L 04/01/21 08:02 37.0 C 73 73 18 116/62 04/01/21 05:42 36.5 C 75 17 119/58 L Pulse Ox 04/01/21 08:07 04/01/21 08:02 100 04/01/21 05:42 100 - Physical Exam Comments/Other: General Appearance: positive: No acute distress Eyes Bilateral: positive: Normal inspection ENT: positive: ENT inspection nml Neck: positive: Nml inspection Respiratory: positive: Chest non-tender, No respiratory distress, Breath sounds nml. negative: Wheezes, Rales, Rhonchi Cardiovascular: positive: Regular rate & rhythm Abdomen: positive: No distention, Other. negative: Guarding, Rebound Extremities: positive: Non-tender, Full ROM, Nml appearance Neurologic/Psychiatric: positive: Oriented x3, CN's nml (2-12) Conclusion/Plan - Diagnosis Diagnosis: 1. Symptomatic anemia. 2. Gastrointestinal bleed. 3. History of polyps, colonic - Plan Plan: 1. Care per hospitalist service 2. Trend H&H and transfuse appropriately 3. Telemetry and close hemodynamic monitoring 4. Plan upper endoscopy to evaluate source, which is most likely given the patient's presenting uremia. Will proceed with colonoscopy as well. 5. Aggressive resuscitation 6. As is always the case, diagnostic endoscopy with potential for therapeutic interventions. Given limitations, surgical interventions and/or transfer for advanced gastrointestinal interventions and/or interventional radiographic interventions remain part of this complex algorithm. 7. Bowel rest and bowel prep in anticipation of colonoscopy 8. PPI infusion and consider Carafate pending results - Lab Results Fish Bones: 04/01/21 05:23 04/01/21 05:23
[2021-04-01] MEDS ORDERED: GLYCOPYRROLATE 1 MG/5 ML VIAL ONE (08:47)
[2021-04-01] MEDS: PANTOPRAZOLE 40 MG VIAL IVP SCH (09:24)
--- NOTE | 2021-04-01 09:53 | PROVIDER PROGRESS NOTE ---
Progress Note 70-year-old male presenting with symptomatic anemia, melena and hematochezia. Ongoing nonsteroidal use absent proton pump inhibition. Progressively worsening symptoms. Actively being transfused. Plan for colonoscopy yesterday however deferred secondary to scheduling a emergency case having "bumped". Colonoscopy with the following findings: 1. Poor prep 2. Ileocecal valve achieved as evidenced by the appendiceal orifice both photographed. 3. Terminal ileum intubated with no enteritis. 4. Cecum without cecitis. The entirety of the colon was out colitis. 5. Careful slow withdrawal showing pancolonic diverticulosis no diverticulitis. 6. Large mass with mucosal changes at historic tattoo site within the sigmoid colon. 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 Incomplete. Multiple specimen sent for pathology. 7. Rectum without proctitis. Pancolonic diverticulosis. No diverticulitis. No colonic source of gastrointestinal hemorrhage. 8. Internal hemorrhoids nonbleeding. Performed esophagogastroduodenoscopy with the following findings 1. Second portion of Duodenum normal. No evidence of of duodenitis. Cold forcep biopsy obtained. Hemostatic. 2. First portion of duodenum noted for multiple punctate ulcerations without active bleeding. Surrounding erythema. Multiply biopsied cold forceps. 3. Antrum without any antritis. Biopsies obtained cold forceps. Hemostatic. Patent pylorus. 4. Retroflexion with no significant hiatal herniation. 5. No diffuse gastritis or gastropathy. No polyps. No ulcerations. 6. GE junction with mild inflammatory changes and irregular Z-line. Biopsied. 7. Mid esophageal biopsies. Plan going forward would be as follows: 1. Continue to transfuse as necessary. 2. Carafate 1 g 4 times daily 3. PPI twice daily omeprazole 40 mg 4. GERD friendly diet 5. Evaluate for 24 hours with low residue diet to determine if the patient is stable and may discharge at that point.
--- NOTE | 2021-04-01 10:58 | ANESTHESIA POST OP EVALUATION ---
Anesthesia Post Eval - Post Anesthesia Eval Vitals: Last Vital Signs Temp 36.5 C 04/01/21 10:47 Pulse 69 04/01/21 10:47 Resp 18 04/01/21 10:47 BP 117/60 04/01/21 10:47 Pulse Ox 98 04/01/21 10:11 CV Function Including HR & BP: Stable Pain Control: Satisfactory Nausea & Vomiting: Negative Mental Status: Baseline Respiratory Status: Airway Patent Hydration Status: Satisfactory Anesthesia Complications: None
--- NOTE | 2021-04-01 12:48 | PROVIDER PROGRESS NOTE ---
Subjective - Prog Note Date Prog Note Date: 04/01/21 - Subjective Subjective: He reports feeling well today. He believes he did have some dark bowel movements yesterday evening. Reports no abdominal pain, nausea, vomiting. He went for the endoscopy and colonoscopy this morning. Current Medications - Current Medications Current Medications: Active Medications Acetaminophen (Acetaminophen 325 Mg Tablet) 650 mg PO Q4HR PRN PRN Reason: Pain 1 to 4 Insulin Human Regular (Insulin Regular Human 300 Unit/3 Ml Vial) 1 - 5 unit SUBQ Q6HR [facility]; Protocol Last Admin: 04/01/21 11:44 Dose: Not Given Documented by: Mineral Oil (Min Oil/Dimethicon/Coconut Oil 92 Gm Tube) 1 applic TOP PRN PRN PRN Reason: Skin Care Last Admin: 04/01/21 06:26 Dose: 1 applic Documented by: Morphine Sulfate (Morphine 2 Mg/Ml Carpuject) 2 mg IVP Q2HR PRN PRN Reason: Pain 8 to 10 Ondansetron HCl (Ondansetron 4 Mg/2 Ml Vial) 4 mg IVP Q6HR PRN PRN Reason: Nausea / Vomiting Oxycodone HCl (Oxycodone 5 Mg Tablet) 5 mg PO Q4HR PRN PRN Reason: Pain 5 to 7 Pantoprazole Sodium (Pantoprazole 40 Mg Vial) 40 mg IVP BID [facility] Last Admin: 04/01/21 09:24 Dose: Not Given Documented by: Petrolatum (Petrolatum White 5 Gm Packet) 1 applic TOP PRN PRN PRN Reason: Dry Lips Sodium Chloride (Sodium Chloride Flush 0.9% 10 Ml Syringe) 10 ml IVP PRN PRN PRN Reason: NEEDED PER PROVIDER ORDERS Last Admin: 03/31/21 22:32 Dose: 10 ml Documented by: Sodium Chloride (Sodium Chloride Flush 0.9% 10 Ml Syringe) 10 ml IVP 0100,0900,1700 [facility] Last Admin: 04/01/21 09:24 Dose: Not Given Documented by: Amlodipine Besylate [Norvasc] 10 mg PO DAILY 03/30/21 Atorvastatin [Lipitor] 20 mg PO QPM 03/30/21 Losartan Potassium [Cozaar] 100 mg PO DAILY 03/30/21 Tadalafil [Cialis] 5 mg PO DAILY 03/30/21 metFORMIN [Glucophage] 500 mg PO BIDWM 03/30/21 Objective - Vital Signs/Intake & Output Reviewed Vital Signs: Yes Vital Signs: Vital Signs x48h Temp Pulse Pulse Pulse Resp BP BP 04/01/21 11:41 36.4 C L 67 67 18 126/70 04/01/21 10:47 36.5 C 69 18 117/60 04/01/21 10:41 36.8 C 61 66 18 123/73 04/01/21 10:11 36.5 C 65 65 18 119/63 04/01/21 10:10 36.5 C 65 65 18 119/63 04/01/21 09:55 36.4 C L 82 16 103/79 04/01/21 09:44 36.2 C L 81 16 102/62 04/01/21 08:07 37.1 C 72 17 117/57 L 04/01/21 08:02 37.0 C 73 73 18 04/01/21 05:42 36.5 C 75 17 BP Pulse Ox 04/01/21 11:41 98 04/01/21 10:47 04/01/21 10:41 98 04/01/21 10:11 98 04/01/21 10:10 98 04/01/21 09:55 100 04/01/21 09:44 99 04/01/21 08:07 04/01/21 08:02 116/62 100 04/01/21 05:42 119/58 L 100 Intake & Output: Intake & Output 03/29/21 03/30/21 03/31/21 04/01/21 23:59 23:59 23:59 23:59 Intake Total 3970 3290 320 Balance 3970 3290 320 - Objective General Appearance: positive: No acute distress, Alert Eyes Bilateral: positive: Normal inspection, Conjunctivae nml ENT: positive: ENT inspection nml Neck: positive: Nml inspection Respiratory: positive: No respiratory distress. negative: Wheezes, Rales Cardiovascular: positive: Regular rate & rhythm, No murmur. negative: Tachycar samuel Abdomen: positive: Non-tender, No distention. negative: Tenderness Skin: positive: Warm, Dry. negative: Pallor - Lab Results Fish Bones: 04/01/21 05:23 04/01/21 05:23 Other Labs: Lab Results x24hrs 04/01/21 04/01/21 04/01/21 Range/Units 05:57 05:23 05:23 WBC 5.1 (4.8-10.8) x10^3/uL RBC 2.21 L (4.70-6.10) 10^6/uL Hgb 6.7 L* (14.0-18.0) g/dL Hct 20.2 L (42.0-52.0) % MCV 91.4 (80.0-94.0) fL MCH 30.3 (27.0-31.0) pg MCHC 33.2 (32.0-36.0) g/dL RDW 14.6 (12.0-15.0) % Plt Count 132 (130-450) 10^3/uL MPV 10.6 (7.4-11.4) fL Neut # (Auto) 3.1 (1.5-6.6) 10^3/uL Lymph # (Auto) 1.2 L (1.5-3.5) 10^3/uL [place] # (Auto) 0.5 (0.0-1.0) 10^3/uL Eos # (Auto) 0.2 (0.0-0.7) 10^3/uL Baso # (Auto) 0.0 (0.0-0.1) 10^3/uL Absolute Nucleated RBC 0.00 x10^3/uL Nucleated RBC % 0.0 /100WBC Sodium 137 (135-145) mmol/L Potassium 3.6 (3.5-5.0) mmol/L Chloride 104 (101-111) mmol/L Carbon Dioxide 27 (21-32) mmol/L Anion Gap 6.0 (6-13) BUN 22 H (6-20) mg/dL Creatinine 0.9 (0.6-1.2) mg/dL Estimated GFR (MDRD) 84 L (>89) Glucose 126 H (70-100) mg/dL POC Whole Bld Glucose 126 H (70 - 100) mg/dL Calcium 8.4 L (8.5-10.3) mg/dL Phosphorus 4.0 (2.5-4.6) mg/dL Magnesium 3.0 H (1.7-2.8) mg/dL Blood Type Antibody Screen Crossmatch IS Only 04/01/21 03/31/21 03/31/21 Range/Units 00:04 20:30 16:46 WBC (4.8-10.8) x10^3/uL RBC (4.70-6.10) 10^6/uL Hgb (14.0-18.0) g/dL Hct (42.0-52.0) % MCV (80.0-94.0) fL MCH (27.0-31.0) pg MCHC (32.0-36.0) g/dL RDW (12.0-15.0) % Plt Count (130-450) 10^3/uL MPV (7.4-11.4) fL Neut # (Auto) (1.5-6.6) 10^3/uL Lymph # (Auto) (1.5-3.5) 10^3/uL [place] # (Auto) (0.0-1.0) 10^3/uL Eos # (Auto) (0.0-0.7) 10^3/uL Baso # (Auto) (0.0-0.1) 10^3/uL Absolute Nucleated RBC x10^3/uL Nucleated RBC % /100WBC Sodium (135-145) mmol/L Potassium (3.5-5.0) mmol/L Chloride (101-111) mmol/L Carbon Dioxide (21-32) mmol/L Anion Gap (6-13) BUN (6-20) mg/dL Creatinine (0.6-1.2) mg/dL Estimated GFR (MDRD) (>89) Glucose (70-100) mg/dL POC Whole Bld Glucose 114 H 108 H 249 H (70 - 100) mg/dL Calcium (8.5-10.3) mg/dL Phosphorus (2.5-4.6) mg/dL Magnesium (1.7-2.8) mg/dL Blood Type Antibody Screen Crossmatch IS Only 03/31/21 03/30/21 Range/Units 14:34 11:29 WBC (4.8-10.8) x10^3/uL RBC (4.70-6.10) 10^6/uL Hgb 7.6 L (14.0-18.0) g/dL Hct 23.0 L (42.0-52.0) % MCV (80.0-94.0) fL MCH (27.0-31.0) pg MCHC (32.0-36.0) g/dL RDW (12.0-15.0) % Plt Count (130-450) 10^3/uL MPV (7.4-11.4) fL Neut # (Auto) (1.5-6.6) 10^3/uL Lymph # (Auto) (1.5-3.5) 10^3/uL [place] # (Auto) (0.0-1.0) 10^3/uL Eos # (Auto) (0.0-0.7) 10^3/uL Baso # (Auto) (0.0-0.1) 10^3/uL Absolute Nucleated RBC x10^3/uL Nucleated RBC % /100WBC Sodium (135-145) mmol/L Potassium (3.5-5.0) mmol/L Chloride (101-111) mmol/L Carbon Dioxide (21-32) mmol/L Anion Gap (6-13) BUN (6-20) mg/dL Creatinine (0.6-1.2) mg/dL Estimated GFR (MDRD) (>89) Glucose (70-100) mg/dL POC Whole Bld Glucose (70 - 100) mg/dL Calcium (8.5-10.3) mg/dL Phosphorus (2.5-4.6) mg/dL Magnesium (1.7-2.8) mg/dL Blood Type B POSITIVE Antibody Screen NEGATIVE Crossmatch IS Only See Detail ABX Reporting Has patient been on IV antibiotics over the past 48 hours?: No Assessment/Plan - Problem List (1) Upper GI bleed Impression: He went for an endoscopy and colonoscopy's morning. This revealed multiple small duodenal ulcerations with surrounding erythema but no evidence of active bleeding. This is likely the source of his upper GI bleed. We will switch his IV Protonix to p.o. and continue twice daily. We will start him on Carafate. General surgery is recommended advancing his diet tonight and if his hemoglobin remained stable without evidence of bleeding then he can be discharged tomorrow. We discussed the importance of avoiding NSAIDs given the duodenal ulcerations. (2) Acute blood loss anemia Impression: His hemoglobin did decrease this morning to less than 7 and he was given 1 more unit of packed red blood cell. His endoscopy did not reveal any obvious bleeding. We will recheck hemoglobin again this evening and tomorrow morning and if it is stable then he can be discharged. (3) Type 2 diabetes mellitus Impression: Stable. Continue carb controlled diet.
[2021-04-01] MEDS: INSULIN ASPART 300 UNIT/3 ML PEN SUBQ SCH ×2 (16:29→22:18)
[2021-04-01] MEDS: SUCRALFATE 1 GM/10 ML UDC PO SCH ×2 (16:33→22:17)
[2021-04-01 17:04] LABS: HCT - HEMATOCRIT 26.7 % (42.0-52.0); HGB - HEMOGLOBIN 8.7 g/dL (14.0-18.0)
[2021-04-01] MEDS: PANTOPRAZOLE 40 MG TABLET PO SCH (22:18)
[2021-04-01] MEDS: SODIUM CHLORIDE FLUSH 0.9% 10 ML SYRINGE IVP PRN (23:59)
[2021-04-02] MEDS: SUCRALFATE 1 GM/10 ML UDC PO SCH ×4 (05:52→21:41)
[2021-04-02 06:27] LABS: BASOPHILS % (AUTO) 0.1 %; EOSINOPHILS # (AUTO) 0.2 10^3/uL (0.0-0.7); EOSINOPHILS % (AUTO) 2.5 %; HCT - HEMATOCRIT 26.1 % (42.0-52.0); HGB - HEMOGLOBIN 8.4 g/dL (14.0-18.0); LYMPHOCYTES # (AUTO) 1.8 10^3/uL (1.5-3.5); MEAN CORPUSCULAR HEMOGLOBIN 30.3 pg (27.0-31.0); MEAN CORPUSCULAR HGB CONC 32.2 g/dL (32.0-36.0); MEAN CORPUSCULAR VOLUME 94.2 fL (80.0-94.0); MEAN PLATELET VOLUME 10.6 fL (7.4-11.4); MONOCYTES # (AUTO) 0.6 10^3/uL (0.0-1.0); MONOCYTES % (AUTO) 7.9 %; NEUTROPHILS # (AUTO) 4.9 10^3/uL (1.5-6.6); NEUTROPHILS % (AUTO) 65.2 %; PLT - PLATELET COUNT 170 10^3/uL (130-450); RED BLOOD COUNT 2.77 10^6/uL (4.70-6.10); RED CELL DISTRIBUTION WIDTH 14.4 % (12.0-15.0); WHITE BLOOD COUNT 7.6 x10^3/uL (4.8-10.8)
[2021-04-02 06:37] LABS: CALCIUM 8.5 mg/dL (8.5-10.3); MAGNESIUM 2.1 mg/dL (1.7-2.8); PHOSPHORUS 3.8 mg/dL (2.5-4.6); POTASSIUM 3.7 mmol/L (3.5-5.0)
[2021-04-02] MEDS: INSULIN ASPART 300 UNIT/3 ML PEN SUBQ SCH ×4 (08:48→21:41)
[2021-04-02] MEDS: SODIUM CHLORIDE FLUSH 0.9% 10 ML SYRINGE IVP SCH ×3 (08:48→16:33)
[2021-04-02] MEDS: PANTOPRAZOLE 40 MG TABLET PO SCH ×2 (08:55→21:40)
[2021-04-02 12:08] LABS: HCT - HEMATOCRIT 24.4 % (42.0-52.0)
[2021-04-02 14:11] LABS: ABSOLUTE RETICS # AUTO 0.073 10^6/uL (0.020-0.110); RED BLOOD COUNT 2.55 10^6/uL (4.70-6.10); RETICULOCYTE COUNT % (AUTO) 2.88 % (0.5-2.3)
[2021-04-02 14:52] LABS: FERRITIN 73.7 ng/mL (23.9-336.2)
[2021-04-02 14:54] LABS: % IRON SATURATION 8 % (20-50); IRON 28 ug/dL (45-182); TOTAL IRON BINDING CAPACITY 353 ug/dL (250-450); TRANSFERRIN 252 mg/dL (180-329)
[2021-04-02 17:03] LABS: HGB - HEMOGLOBIN 7.9 g/dL (14.0-18.0)
--- NOTE | 2021-04-02 17:35 | PROVIDER PROGRESS NOTE ---
Assessment/Plan - Problem List (1) Upper GI bleed Assessment/Plan: 04/02 Patient's hemoglobin slightly decreased, Patient report he had dark and brown-colored mixed the stool on today. It is improved but still need to monitor now. We will watch patient overnight, will have an H&H monitor tonight. Continue Protonix, Carafate. Discussed with the patient hold aspirin, ibuprofen of NSAIDs, advised the patient quit alcohol, Follow-up with GI surgeon. (2) Acute blood loss anemia Patient has acute blood loss from his GI bleed, likely from his duodenal ulcers. Patient had both EGD and colonoscopy done in hospital. Iron study also showed patient had a mild Iron deficiency. order iron pill, Continue H&H monitor, continue Protonix and Carafate. (3) Type 2 diabetes mellitus Impression: Stable. Continue carb controlled diet, Continue sliding scale, check A1c (4)alcohol abuse Patient reported he drank alcohol regularly, He denies alcohol withdrawal. We will order and vitamin B-1 for pain. Strongly advised patient quit alcohol because patient had GI bleed now - Current Meds Current Meds: Current Medications Generic Name Dose Route Start Last Admin Trade Name Freq PRN Reason Stop Dose Admin Insulin Aspart 1 - 5 unit 04/01/21 17:00 04/02/21 11:45 Insulin Aspart 300 Unit/3 Ml Pen SUBQ Not Given 0800,1200,1700,2100 [facility] Protocol Mineral Oil 1 applic 04/01/21 05:46 04/01/21 06:26 Min Oil/Dimethicon/Coconut Oil 92 Gm Tube TOP 1 applic PRN PRN Administration Skin Care Pantoprazole Sodium 40 mg 04/01/21 21:00 04/02/21 08:55 Pantoprazole 40 Mg Tablet PO 40 mg BID [facility] Administration Sodium Chloride 10 ml 03/30/21 13:03 04/01/21 23:59 Sodium Chloride Flush 0.9% 10 Ml Syringe IVP 10 ml PRN PRN Administration NEEDED PER PROVIDER ORDERS Sodium Chloride 10 ml 03/30/21 17:00 04/02/21 16:33 Sodium Chloride Flush 0.9% 10 Ml Syringe IVP 10 ml 0100,0900,1700 [facility] Administration Sucralfate 1 gm 04/01/21 16:00 04/02/21 16:22 Sucralfate 1 Gm/10 Ml Udc PO 1 gm 0700,1100,1600,2200 [facility] Administration - Lab Result Fish Bone Diagrams: 04/02/21 16:59 04/02/21 06:08 - Additional Planning My Orders: My Active Orders 04/02/21 Social Work Consult [CONS] Routine 04/02/21 12:03 HEMOGLOBIN A1c% [CHEM] Urgent 04/02/21 21:00 Atorvastatin [Lipitor] 20 mg PO QPM 04/03/21 09:00 Losartan [Cozaar] 100 mg PO DAILY amLODIPine [Norvasc] 10 mg PO DAILY Subjective - Subjective Patient Reports: Feeling Better Objective Vital Signs: Vital Signs - 24 hr 04/01/21 04/02/21 04/02/21 19:50 00:59 05:50 Temperature 37.1 C 36.9 C 36.8 C Heart Rate [ 71 78 72 Brachial] Respiratory 18 18 17 Rate Blood Pressure 136/73 H [Left Brachial artery] Blood Pressure 112/59 L 129/76 [Right Brachial artery] O2 Saturation 100 100 99 04/02/21 04/02/21 04/02/21 07:32 12:30 16:10 Temperature 37 C 36.9 C 36.7 C Heart Rate [ 72 75 67 Brachial] Respiratory 16 18 16 Rate Blood Pressure [Left Brachial artery] Blood Pressure 121/70 143/77 H 146/79 H [Right Brachial artery] O2 Saturation 100 100 100 Oxygen O2 Source Room air I&O (Last 24 Hrs): Intake and Output Totals x24h 03/31/21 04/01/21 04/02/21 23:59 23:59 23:59 Intake Total 3290 1490 820 Balance 3290 1490 820 General: Alert, Oriented x3, Cooperative, No acute distress HEENT: Atraumatic, PERRLA Neck: Supple Lymphatic: no adenopathy Neuro: Alert, Non Focal, Oriented Times 3 Cardiovascular: Regular rate, Normal S1, Normal S2 Respiratory: Chest non-tender, No respiratory distress Abdomen: Normal bowel sounds, Soft Extremities: Normal pulses - Results Results: Laboratory Results WBC 7.6 x10^3/uL (4.8-10.8) 04/02/21 06:08 RBC 2.55 10^6/uL (4.70-6.10) L 04/02/21 14:08 Hgb 7.9 g/dL (14.0-18.0) L 04/02/21 16:59 Hct 24.0 % (42.0-52.0) L 04/02/21 16:59 MCV 94.2 fL (80.0-94.0) H 04/02/21 06:08 MCH 30.3 pg (27.0-31.0) 04/02/21 06:08 MCHC 32.2 g/dL (32.0-36.0) 04/02/21 06:08 RDW 14.4 % (12.0-15.0) 04/02/21 06:08 Plt Count 170 10^3/uL (130-450) 04/02/21 06:08 MPV 10.6 fL (7.4-11.4) 04/02/21 06:08 Reticulocyte % (Auto) 2.88 % (0.5-2.3) H 04/02/21 14:08 Neut # (Auto) 4.9 10^3/uL (1.5-6.6) 04/02/21 06:08 Lymph # (Auto) 1.8 10^3/uL (1.5-3.5) 04/02/21 06:08 [place] # (Auto) 0.6 10^3/uL (0.0-1.0) 04/02/21 06:08 Eos # (Auto) 0.2 10^3/uL (0.0-0.7) 04/02/21 06:08 Baso # (Auto) 0.0 10^3/uL (0.0-0.1) 04/02/21 06:08 Absolute Nucleated RBC 0.00 x10^3/uL 04/02/21 06:08 Nucleated RBC % 0.0 /100WBC 04/02/21 06:08 Absolute Retic 0.073 10^6/uL (0.020-0.110) 04/02/21 14:08 PT 13.2 secs (9.9-12.6) H 03/30/21 18:29 INR 1.2 (0.8-1.2) 03/30/21 18:29 Sodium 136 mmol/L (135-145) 04/02/21 06:08 Potassium 3.7 mmol/L (3.5-5.0) 04/02/21 06:08 Chloride 102 mmol/L (101-111) 04/02/21 06:08 Carbon Dioxide 27 mmol/L (21-32) 04/02/21 06:08 Anion Gap 7.0 (6-13) 04/02/21 06:08 BUN 16 mg/dL (6-20) 04/02/21 06:08 Creatinine 1.0 mg/dL (0.6-1.2) 04/02/21 06:08 Estimated GFR (MDRD) 74 (>89) L 04/02/21 06:08 Glucose 144 mg/dL (70-100) H 04/02/21 06:08 POC Whole Bld Glucose 112 mg/dL (70 - 100) H 04/02/21 16:38 Calcium 8.5 mg/dL (8.5-10.3) 04/02/21 06:08 Phosphorus 3.8 mg/dL (2.5-4.6) 04/02/21 06:08 Magnesium 2.1 mg/dL (1.7-2.8) 04/02/21 06:08 Iron 28 ug/dL (45-182) L 04/02/21 14:08 TIBC 353 ug/dL (250-450) 04/02/21 14:08 % Saturation 8 % (20-50) L 04/02/21 14:08 Transferrin 252 mg/dL (180-329) 04/02/21 14:08 Ferritin 73.7 ng/mL (23.9-336.2) 04/02/21 14:08 Total Bilirubin 0.8 mg/dL (0.2-1.0) 03/30/21 11:29 AST 19 IU/L (10-42) 03/30/21 11:29 ALT 29 IU/L (10-60) 03/30/21 11:29 Alkaline Phosphatase 48 IU/L (42-121) 03/30/21 11:29 Lactate Dehydrogenase 134 IU/L (91-225) 04/02/21 14:08 Total Protein 6.7 g/dL (6.7-8.2) 03/30/21 11:29 Albumin 4.4 g/dL (3.2-5.5) 03/30/21 11:29 Globulin 2.3 g/dL (2.1-4.2) 03/30/21 11:29 Albumin/Globulin Ratio 1.9 (1.0-2.2) 03/30/21 11:29 Lipase 47 U/L (22-51) 03/30/21 11:29 Vitamin B12 379 pg/mL (180-914) 04/02/21 14:08 Urine Color YELLOW 03/30/21 11:52 Urine Clarity CLEAR (CLEAR) 03/30/21 11:52 Urine pH 5.0 PH (5.0-7.5) 03/30/21 11:52 Ur Specific [place] 1.015 (1.002-1.030) 03/30/21 11:52 Urine Protein NEGATIVE mg/dL (NEGATIVE) 03/30/21 11:52 Urine Glucose (UA) NEGATIVE mg/dL (NEGATIVE) 03/30/21 11:52 Urine Ketones NEGATIVE mg/dL (NEGATIVE) 03/30/21 11:52 Urine Occult Blood NEGATIVE (NEGATIVE) 03/30/21 11:52 Urine Nitrite NEGATIVE (NEGATIVE) 03/30/21 11:52 Urine Bilirubin NEGATIVE (NEGATIVE) 03/30/21 11:52 Urine Urobilinogen 0.2 (NORMAL) E.U./dL (NORMAL) 03/30/21 11:52 Ur Leukocyte Esterase NEGATIVE (NEGATIVE) 03/30/21 11:52 Ur Microscopic Review NOT INDICATED 03/30/21 11:52 Urine Culture Comments NOT INDICATED 03/30/21 11:52 Nasal Adenovirus (PCR) NOT DETECTED 03/30/21 11:52 Nasal B. parapertussis DNA (PCR) NOT DETECTED 03/30/21 11:52 Nasal Coronavir 229E PCR NOT DETECTED 03/30/21 11:52 Nasal Coronavir HKU1 PCR NOT DETECTED 03/30/21 11:52 Nasal Coronavir NL63 PCR NOT DETECTED 03/30/21 11:52 Nasal Coronavir OC43 PCR NOT DETECTED 03/30/21 11:52 Nasal Enterovir/Rhinovir PCR NOT DETECTED 03/30/21 11:52 Nasal Influenza B PCR NOT DETECTED 03/30/21 11:52 Nasal Influenza A PCR NOT DETECTED 03/30/21 11:52 Nasal Parainfluen 1 PCR NOT DETECTED 03/30/21 11:52 Nasal Parainfluen 2 PCR NOT DETECTED 03/30/21 11:52 Nasal Parainfluen 3 PCR NOT DETECTED 03/30/21 11:52 Nasal Parainfluen 4 PCR NOT DETECTED 03/30/21 11:52 Nasal RSV (PCR) NOT DETECTED 03/30/21 11:52 Nasal B.pertussis DNA PCR NOT DETECTED 03/30/21 11:52 Nasal C.pneumoniae (PCR) NOT DETECTED 03/30/21 11:52 [place] Human Metapneumo PCR NOT DETECTED 03/30/21 11:52 Nasal M.pneumoniae (PCR) NOT DETECTED 03/30/21 11:52 Nasal SARS-CoV-2 (PCR) NOT DETECTED 03/30/21 11:52 Blood Type B POSITIVE 03/30/21 11:29 Blood Type Recheck B POSITIVE 03/30/21 12:07 Antibody Screen NEGATIVE 03/30/21 11:29 Crossmatch IS Only See Detail 03/30/21 11:29 - Procedures Procedures: Procedures ENDOSC POLYPECTOMY OF LG INTEST (08/21/14) EXCISION OF RECTUM, ENDO (05/24/19) EXCISION OF SIGMOID COLON, ENDO (05/24/19) EXCISION OF SIGMOID COLON, ENDO, DIAGN (05/24/19) INTRODUCTION OF OTH THERAP SUBST INTO LOW GI, ENDO (05/24/19) ABX Reporting Has patient been on IV antibiotics over the past 48 hours?: No Current Medications - Current Medications Current Medications: Active Medications Acetaminophen (Acetaminophen 325 Mg Tablet) 650 mg PO Q4HR PRN PRN Reason: Pain 1 to 4 Amlodipine Besylate (Amlodipine 5 Mg Tablet) 10 mg PO DAILY [facility] Atorvastatin Calcium (Atorvastatin 10 Mg Tablet) 20 mg PO QPM [facility] Ferrous Sulfate (Ferrous Sulfate 325 Mg Tablet) 325 mg PO DAILYWM [facility] Insulin Aspart (Insulin Aspart 300 Unit/3 Ml Pen) 1 - 5 unit SUBQ 0800,1200,1700,2100 [facility]; Protocol Last Admin: 04/02/21 17:40 Dose: Not Given Documented by: Losartan Potassium (Losartan 50 Mg Tablet) 100 mg PO DAILY [facility] Mineral Oil (Min Oil/Dimethicon/Coconut Oil 92 Gm Tube) 1 applic TOP PRN PRN PRN Reason: Skin Care Last Admin: 04/01/21 06:26 Dose: 1 applic Documented by: Morphine Sulfate (Morphine 2 Mg/Ml Carpuject) 2 mg IVP Q2HR PRN PRN Reason: Pain 8 to 10 Ondansetron HCl (Ondansetron 4 Mg/2 Ml Vial) 4 mg IVP Q6HR PRN PRN Reason: Nausea / Vomiting Oxycodone HCl (Oxycodone 5 Mg Tablet) 5 mg PO Q4HR PRN PRN Reason: Pain 5 to 7 Pantoprazole Sodium (Pantoprazole 40 Mg Tablet) 40 mg PO BID [facility] Last Admin: 04/02/21 08:55 Dose: 40 mg Documented by: Petrolatum (Petrolatum White 5 Gm Packet) 1 applic TOP PRN PRN PRN Reason: Dry Lips Multivit/Folic Acid/Iron ( Vitamin Tablet) 1 tab PO DAILYWM [facility] Last Admin: 04/02/21 18:52 Dose: 1 tab Documented by: Sodium Chloride (Sodium Chloride Flush 0.9% 10 Ml Syringe) 10 ml IVP PRN PRN PRN Reason: NEEDED PER PROVIDER ORDERS Last Admin: 04/01/21 23:59 Dose: 10 ml Documented by: Sodium Chloride (Sodium Chloride Flush 0.9% 10 Ml Syringe) 10 ml IVP 0100,0900,1700 [facility] Last Admin: 04/02/21 16:33 Dose: 10 ml Documented by: Sucralfate (Sucralfate 1 Gm/10 Ml Udc) 1 gm PO 0700,1100,1600,2200 [facility] Last Admin: 04/02/21 16:22 Dose: 1 gm Documented by: Thiamine HCl (Thiamine 100 Mg Tablet) 100 mg PO DAILY [facility] Last Admin: 04/02/21 18:52 Dose: 100 mg Documented by: Amlodipine Besylate [Norvasc] 10 mg PO DAILY 03/30/21 Atorvastatin [Lipitor] 20 mg PO QPM 03/30/21 Losartan Potassium [Cozaar] 100 mg PO DAILY 03/30/21 Tadalafil [Cialis] 5 mg PO DAILY 03/30/21 metFORMIN [Glucophage] 500 mg PO BIDWM 03/30/21
[2021-04-02] MEDS: THIAMINE 100 MG TABLET PO SCH (18:52)
[2021-04-02] MEDS: PRENATAL VITAMIN TABLET PO SCH (18:52)
[2021-04-02 20:07] LABS: ESTIMATED AVERAGE GLUCOSE 111 mg/dL (70-100); HEMOGLOBIN A1c% 5.5 % (4.27-6.07)
[2021-04-02] MEDS ORDERED: ATORVASTATIN 10 MG TABLET PO SCH (21:00)
[2021-04-02] MEDS: FERROUS SULFATE 325 MG TABLET PO SCH (21:40)
[2021-04-02 23:05] LABS: HCT - HEMATOCRIT 21.7 % (42.0-52.0)
[2021-04-02] MEDS: SODIUM CHLORIDE FLUSH 0.9% 10 ML SYRINGE IVP PRN (23:37)
[2021-04-03] MEDS: SUCRALFATE 1 GM/10 ML UDC PO SCH ×2 (06:16→11:17)
[2021-04-03] MEDS: FERROUS SULFATE 325 MG TABLET PO SCH (08:06)
[2021-04-03] MEDS: PRENATAL VITAMIN TABLET PO SCH (08:06)
[2021-04-03] MEDS: INSULIN ASPART 300 UNIT/3 ML PEN SUBQ SCH ×2 (08:07→11:24)
[2021-04-03 08:40] LABS: EOSINOPHILS # (AUTO) 0.2 10^3/uL (0.0-0.7); HCT - HEMATOCRIT 25.9 % (42.0-52.0); HGB - HEMOGLOBIN 8.4 g/dL (14.0-18.0); LYMPHOCYTES # (AUTO) 1.6 10^3/uL (1.5-3.5); MEAN CORPUSCULAR HEMOGLOBIN 29.6 pg (27.0-31.0); MEAN CORPUSCULAR HGB CONC 32.4 g/dL (32.0-36.0); MEAN CORPUSCULAR VOLUME 91.2 fL (80.0-94.0); MEAN PLATELET VOLUME 10.6 fL (7.4-11.4); MONOCYTES # (AUTO) 0.5 10^3/uL (0.0-1.0); MONOCYTES % (AUTO) 8.4 %; NEUTROPHILS # (AUTO) 3.4 10^3/uL (1.5-6.6); NEUTROPHILS % (AUTO) 60.2 %; PLT - PLATELET COUNT 151 10^3/uL (130-450); RED BLOOD COUNT 2.84 10^6/uL (4.70-6.10); RED CELL DISTRIBUTION WIDTH 15.9 % (12.0-15.0); WHITE BLOOD COUNT 5.6 x10^3/uL (4.8-10.8)
[2021-04-03 08:50] LABS: CALCIUM 8.8 mg/dL (8.5-10.3); PHOSPHORUS 3.8 mg/dL (2.5-4.6); POTASSIUM 3.6 mmol/L (3.5-5.0)
[2021-04-03] MEDS ORDERED: LOSARTAN 50 MG TABLET PO SCH (09:00)
[2021-04-03] MEDS ORDERED: amLODIPine 5 MG TABLET PO SCH (09:00)
[2021-04-03] MEDS: THIAMINE 100 MG TABLET PO SCH (09:25)
[2021-04-03] MEDS: SODIUM CHLORIDE FLUSH 0.9% 10 ML SYRINGE IVP SCH (09:25)
[2021-04-03] MEDS: PANTOPRAZOLE 40 MG TABLET PO SCH (09:25)
[2021-04-03 12:36] LABS: HCT - HEMATOCRIT 26.5 % (42.0-52.0); HGB - HEMOGLOBIN 8.6 g/dL (14.0-18.0)
--- NOTE | 2021-04-03 14:56 | Discharge Plan ---
Discharge Plan Problem Reviewed?: Yes Disposition: Home, Self Care Condition: Stable Prescriptions: Sucralfate [Carafate] 1 tablet PO TID #90 tablet Ferrous Sulfate [Feosol] 325 mg PO DAILYWM #30 tablet Pnv No.95/Ferrous Fum/Folic AC [ Tablet] 1 each PO DAILY #30 tablet Pantoprazole [Protonix] 40 mg PO BID #60 tablet Thiamine [Vitamin B-1] 100 mg PO DAILY #30 tablet Diet: Regular Activity Restrictions: Activity as Tolerated Shower Restrictions: No (fall precaution) Instruction Topics: Pantoprazole tablets, Sucralfate oral suspension, Bleeding Gastrointestinal, Addiction Alcohol Health Concerns: GI bleed Plan of Treatment: You were found to have GI bleeding in the hospital. you had EGD and colonoscopy done by surgeon in the hospital. You were found to have 3 small duodenal ulcers in the EGD Procedure. Now Your hemoglobin is steady stable and rise. You are prescribed Protonix and Carafate. You may hold alcohol drinking, hold NSAIDs Such as aspirin or ibuprofen intake. you may follow-up with your surgeon in 3 months, surgeon's phone number: [phone] Or call hospital main phone number to make an appointment. You may follow-up your PCP in 1 week to check your hemoglobin again. Care Goals: Stabilization and improvement/resolve of new medical conditions Assessment: Discussed the care plan with you, answered your questions, And you understood. Additional Instructions or Follow Up instructions: You may follow-up with your PCP in 1 week to recheck your hemoglobin, you may follow-up with your surgeon in 3 months. Should your symptoms return or worsen, you may present to ER or call 911 for help No Smoking: If you smoke, Please STOP! Call for help. Follow-up with: IONA RANDALL, [Primary Care Provider] -
--- NOTE | 2021-04-03 15:08 | DISCHARGE SUMMARY ---
"Discharge Summary Admit Date: 03/30/21 Discharge Date: 04/03/21 Discharging Provider: Jose Guadalupe Choudhury Primary Care Provider: Aurea Gauthier Condition at Discharge: Stable Discharge Disposition: 01 Home, Self Care Discharge Facility Name: home - DIAGNOSES Discharge Diagnoses with Status of Each Condition: (1) Upper GI bleed Patient's hemoglobin is steady stable and rise. Patient had both EGD and colonoscopy done by surgeon in our hospital. Patient was found to have three small duodenal ulcers. Patient was treated with Protonix and Carafate. Patient is prescribed Protonix and Carafate discharge to home. Patient is advised to ho ld alcohol, hold NSAIDs, Such as ibuprofen, aspirin, Follow-up with GI surgeon, recheck hemoglobin in primary care office in 1 week. (2) Acute blood loss anemia Patient has acute blood loss from his GI bleed, likely from his duodenal ulcers. Patient had both EGD and colonoscopy done in hospital. Iron study also showed patient had a mild Iron deficiency. order iron pill, continue Protonix and Carafate. recheck hemoglobin in primary care office in 1 week. (3) Type 2 diabetes mellitus Stable. A1c 5.5, Follow-up with PCP management. (4)alcohol abuse Patient reported he drank alcohol regularly, He denies alcohol withdrawal. order and vitamin B-1 for pain. Strongly advised patient quit alcohol because patient had GI bleed. - [facility] History of Present Illness: refer from Dr. metz's HPI on 03/30/21 This is a 70-year-old male with a past medical history significant for type 2 diabetes mellitus, hypertension presents today complaining of dark tarry stools. He states began yesterday evening at about 9 PM. He had 1 bowel movement noted to stool was bloody and dark. He thought himself that he likely was bleeding from an upper GI source. He states he went to sleep but woke up in all night another bowel movement and once again it was dark and tarry. He then began to feel quite dizzy and lightheaded and was barely able to get himself back to bed. Given he still felt weak, dizzy and lightheaded this morning, he decided to come to the emergency department. He reports he has been on ibuprofen for most of his life for chronic leg pain. Over the past 4 months he has switched to naproxen twice daily. He reports no nausea or vomiting or hematemesis. He does drink 4-5 alcoholic beverages a day and has been doing so since the age of 14. He reports having a colonoscopy his most recent being about 3 years ago. He has been told that he has diverticulosis, polyps and a lipoma in his colon. He currently reports feeling much better after receiving IV fluids in the emergency department. He denies any chest pain, dyspnea, fever, chills. Reports no abdominal pain. He denies use of any blood thinners including aspirin. In the emergency department, he was noted to have a hemoglobin of 7.7. Baseline is approximately 12. He was ordered 1 unit of packed red blood cell. Given the above findings, medicine was consulted for admission. He did receive Protonix IV in the emergency department and general surgery was contacted by the emergency department physician. We did discuss goals of care and he would like to be a full code. - CONSULTS | PROCEDURES Consultations: Dr. Newby Procedures: EGD and colonoscopy - HOSPITAL COURSE Hospital Course: Patient is admitted for GI bleeding with dark tarry stools. Patient had 3 units of blood transfusion hospital. Patient had both EGD and colonoscopy done by GI surgeon in the hospital. Patient was found to have three small duodenal ulcers in EGD. Patient was treated with Protonix and Carafate. In colonoscopy, patient was found to have a large sigmoid mass, patient has a history of lipoma sigmoid mass. Surgeon did biopsy, Result of biopsy is pending. surgeon will inform patient after biopsy has result. After treatment, patient's hemoglobin stable and slightly rise. Patient was prescribed Protonix and Carafate. Patient was discharged at hemodynamic stable condition. - ALLERGIES Allergies/Adverse Reactions: Allergies Allergy/AdvReac Type Severity Reaction Status Date / Time Penicillins Allergy Unknown Verified 03/30/21 11:20 Sulfa (Sulfonamide Allergy Unknown Verified 03/30/21 11:20 Antibiotics) - MEDICATIONS Home Medications: Ambulatory Orders Medication Instructions Recorded Confirmed Amlodipine Besylate [Norvasc] 10 mg PO DAILY 03/30/21 03/30/21 Atorvastatin [Lipitor] 20 mg PO QPM 03/30/21 03/30/21 Losartan Potassium [Cozaar] 100 mg PO DAILY 03/30/21 03/30/21 Tadalafil [Cialis] 5 mg PO DAILY 03/30/21 03/30/21 metFORMIN [Glucophage] 500 mg PO BIDWM 03/30/21 03/30/21 Ferrous Sulfate [Feosol] 325 mg PO DAILYWM #30 tablet 04/03/21 Pantoprazole [Protonix] 40 mg PO BID #60 tablet 04/03/21 Pnv No.95/Ferrous Fum/Folic AC 1 each PO DAILY #30 tablet 04/03/21 [ Tablet] Sucralfate [Carafate] 1 tablet PO TID #90 tablet 04/03/21 Thiamine [Vitamin B-1] 100 mg PO DAILY #30 tablet 04/03/21 - PHYSICAL EXAM AT DISCHARGE General Appearance: positive: No acute distress, Alert. negative: Lethargic Eyes Bilateral: positive: Normal inspection, PERRL, No lid inflammation ENT: positive: ENT inspection nml, No signs of dehydration. negative: Purulent nasal drainage Neck: positive: Nml inspection, Trachea midline. negative: Thyromegaly, Tracheal deviation Respiratory: positive: Chest non-tender, No respiratory distress. negative: Wheezes, Rales Cardiovascular: positive: Regular rate & rhythm, No murmur. negative: Tachycardia, Bradycardia, Systolic murmur, Diastolic murmur Peripheral Pulses: positive: 2+ Abdomen: positive: Non-tender, Nml bowel sounds, No distention. negative: Tenderness Back: positive: Nml inspection Skin: positive: Color nml, Warm, Dry. negative: Cyanosis Extremities: positive: Non-tender, Full ROM, Nml appearance. negative: Calf tenderness Neurologic/Psychiatric: positive: Oriented x3, Motor nml, Sensation nml, Mood/affect nml. negative: Weakness, Sensory loss, Facial droop, Slurred/abnml speech, Depressed mood/affect - LABS Result Diagrams: 04/03/21 12:28 04/03/21 08:18 - FOLLOW UP Follow Up: You were found to have GI bleeding in the hospital. you had EGD and colonoscopy done by surgeon in the hospital. You were found to have 3 small duodenal ulcers in the EGD Procedure. Now Your hemoglobin is steady stable and rise. You are prescribed Protonix and Carafate. You may hold alcohol drinking, hold NSAIDs Such as aspirin or ibuprofen intake. you may follow-up with your surgeon in 3 months, surgeon's phone number: [phone] Or call hospital main phone number to make an appointment. You may follow-up your PCP in 1 week to check your hemoglobin again. You may follow-up with your PCP in 1 week to recheck your hemoglobin, you may follow-up with your surgeon in 3 months. Should your symptoms return or worsen, you may present to ER or call 911 for help - TIME SPENT Time Spent in Discharge (Minutes): 30"
[2021-04-03 15:54] VITALS: BP 135/71
== END 2021-04-03 16:10 | disposition home or self-care (01) | DRG 378 ==
LOC: ED 11:04 → MS2 13:03 → OBSVTOIN 03-31 18:51
PROVIDERS: ADMIT Internal Medicine; ATTEND Nurse Practitioner Gerontology
PROC: 0DB78ZX Excision of Stomach, Pylorus, Via Natural or Artificial Opening Endoscopic, Diagnostic (ICD-10-PCS; 2021-04-01)
PROC: 0DB28ZX Excision of Middle Esophagus, Via Natural or Artificial Opening Endoscopic, Diagnostic (ICD-10-PCS; 2021-04-01)
PROC: 0DB48ZX Excision of Esophagogastric Junction, Via Natural or Artificial Opening Endoscopic, Diagnostic (ICD-10-PCS; 2021-04-01)
PROC: 0DBN8ZX Excision of Sigmoid Colon, Via Natural or Artificial Opening Endoscopic, Diagnostic (ICD-10-PCS; principal; 2021-04-01 07:30)
PROC: 0DB98ZX Excision of Duodenum, Via Natural or Artificial Opening Endoscopic, Diagnostic (ICD-10-PCS; 2021-04-01 07:30)
DX: K92.2 Gastrointestinal hemorrhage, unspecified (principal); K26.4 Chronic or unspecified duodenal ulcer with hemorrhage; D62 Acute posthemorrhagic anemia; F10.10 Alcohol abuse, uncomplicated; Z79.84 Long term (current) use of oral hypoglycemic drugs; Z79.1 Long term (current) use of non-steroidal anti-inflammatories (NSAID); Z79.899 Other long term (current) drug therapy; Z20.822 Contact with and (suspected) exposure to COVID-19; E11.9 Type 2 diabetes mellitus without complications; I10 Essential (primary) hypertension; K63.89 Other specified diseases of intestine; Z87.891 Personal history of nicotine dependence; E78.00 Pure hypercholesterolemia, unspecified; K57.31 Diverticulosis of large intestine without perforation or abscess with bleeding; K64.8 Other hemorrhoids; E61.1 Iron deficiency
CPT/HCPCS: 36415; 36430; 80048; 80053; 81003; 82272; 82607; 82728; 83036; 83540; 83615; 83690; 83735; 84100; 84466; 85014; 85018; 85025; 85045; 85610; 86850; 86900; 86901; 86920; 87631; 96374; 96375; 96376; 99284; 99285; A6250; A9270; P9016; 0202U; 81001; 87086